=== PATIENT | male | born 1930 | race Caucasian/White ===

== ENCOUNTER 2016-09-07 22:28 | Inpatient (IN) | payer OTHER ==
--- NOTE | 2016-09-07 22:40 | CPEKG ---
Heart Rate: 77 RR Interval: 779 QRSD Interval: 140 QT Interval: 444 QTC Interval: 503 QRS Berkley: -46 T Wave Berkley: 30 EKG Severity - ABNORMAL ECG - EKG Impression: AFIB/FLUT AND V-PACED COMPLEXES EKG Impression: RBBB AND LAFB Electronically Signed By: Elgin Felix 07-Sep-2016 23:04:11
--- NOTE | 2016-09-07 22:42 | EDPHY ---
H & P HPI/ROS: HPI CHIEF COMPLAINT: Generalized weakness HISTORY OF PRESENT ILLNESS: this patient very pleasant 85-year-old male significant past medical history for coronary artery disease with stents, pacemaker, DVT, AFib, chronic kidney disease, hypertension, hyperlipidemia who presents emergency room by EMS from private residence with his for generalized weakness. Patient unable to give me very good history. History mainly comes from the . reports to me that he did well yesterday he went to cardiac rehab yesterday he was a little bit tired last night however today he has been unable to walk as he has been so fatigued and complaining of generalized weakness. He slept almost all of the day in his recliner. Was amiable to get out of his climber without help which is unusual for him. He does use a walker. He states that his legs feel very heavy and he cannot ambulate appropriately because he is so weak and tired. Denies having chest pain to me denies being shortness of breath, denies vomiting and diarrhea or abdominal pain. He does admit to dysuria. Denies back pain or flank pain or fever or headache. Past Medical History: Hypertension, hyperlipidemia, AFib, DVT, coronary artery disease, UTI, prostate CA, CKD Past Surgical History: Cholecystectomy Social History: Lives locally, at bedside, lives in independent house Family History: Noncontributory ROS REVIEW OF SYSTEMS: Review of systems extremely limited due to the patient's being a poor historian possible underlying clinical condition Exam Constitutional sleepy, triage nursing summary reviewed, vital signs reviewed, awake/alert. Eyes normal conjunctivae and sclera, EOMI, PERRLA. HENT normal inspection, atraumatic, dry mucous membranes, no epistaxis, neck supple/ no meningismus, no raccoon eyes. Respiratory clear to auscultation bilaterally, normal breath sounds, no respiratory distress, no wheezing. Cardiovascular pacemaker left chest, rate normal, regular rhythm, no murmur, no edema, distal pulses normal. Gastrointestinal soft, non-tender, no rebound, no guarding, normal bowel sounds, no distension, no pulsatile mass. Genitourinary no CVA tenderness. Musculoskeletal no midline vertebral tenderness, full range of motion, no calf swelling, no tenderness of extremities, no meningismus, good pulses, neurovascularly intact. Skin pink, warm, & dry, no rash, skin atraumatic. Neurologic sleepy awake, alert and oriented x 3, AAOx3, moves all 4 extremities equally, motor intact, sensory intact, CN II-XII intact, normal cerebellar, normal vision, bilateral lower extremity weakness 3+ out of 5. Upper extremity strong bilaterally, otherwise no other focal neuro deficit appreciated. Psychiatric normal mood/affect. Heme/Lymph/Immune no lymphadenopathy. Differential Diagnosis: Includes but is not limited to in a particular order, infection, electrolyte abnormality, dehydration, UTI, acute coronary syndrome Medical Decision Making: plan for this patient will have an IV established, blood work, check urinalysis EKG, troponin, chest x-ray and CT scan of head for altered mental status and generalized weakness. Re-evaluation: EKG interpretation by me on record in [facility] system. Impression time of EKG 2237: This shows a rate of 77, right bundle branch block left anterior fascicular block this EKG is very similar morphology from previous EKG dated on 05/12/2016 shows T-wave inversions V1, V2, V3 very similar to previous EKG. CT scan of the head without IV contrast. The results of the study are negative for anything acute specifically no bleed. The study was read by Dr. Stock I viewed the images myself on the PACS system. ED x-ray chest one view: negative for acute cardiopulmonary disease specifically do not appreciate focal pneumonia. Image interpreted by myself. 1221: Re-evaluation at this time updated at bedside patient is resting no acute distress. Due to the patient's profound weakness unable to ambulate take care of himself he will need to be admitted to the hospital for generalized weakness. It is noted he has an elevated troponin however when I trend this is close to his baseline as well as his BMP. He does not appear volume overloaded fact he appears clinically dehydrated on exam. He has no chest pain or shortness of breath his EKG is unchanged in morphology. Influenza is pending. Chest x-ray shows no pneumonia. CT scan of his head is unremarkable. Urinalysis does indicate he may have a urinary tract infection this may be contributing to his leukocytosis as well as generalized weakness. I have sent a urine culture and will treat with 1 g IV Rocephin. Due the patient's age, generalized weakness, urinary tract infection patient be admitted to the hospital for further evaluation and workup of generalized weakness. It is noted he is afebrile here and nontoxic. Patient agrees for admission so his at bedside. I spoke with the hospitalist service Dr. Guzman who agrees to admit. Source: Patient, EMS - Personal History Tetanus Vaccine Date: 2011 - Medical/Surgical History Hx Asthma: No Hx Chronic Respiratory Disease: Yes Hx Diabetes: No Hx Cardiac Disease: Yes Hx Renal Disease: Yes Hx Cirrhosis: No Hx Alcoholism: No Hx HIV/AIDS: No Hx Splenectomy or Spleen Trauma: Yes Other PMH: PMH- AFIB W/ RVR, DVT W/ IVC FILTER, KIDNEY STONES, CAD W/ 4 STENTS, SLEEP APNEA W/ HOME O2, SEPSIS, HTN, HLD, CAHUILLA, CKD, PROSTATE CA, ISCHEMIC CARDIOMYOPATHY, CHF W/ EF 45% W/ DIASTOLIC FXN. PSH- OCTAVIO, CARDIAC STENT X4, KIDNEY TUMOR RESECTED, CERVICAL SPINE FUSION, LUMBAR FUSION, TONSILECTOMY - Social History Smoking Status: Never smoked Constitutional: Initial Vital Signs Temperature (C) 36.7 C 09/07/16 22:39 Heart Rate 78 09/07/16 22:39 Respiratory Rate 18 09/07/16 22:39 Blood Pressure 164/78 H 09/07/16 22:39 O2 Sat (%) 92 09/07/16 22:39 O2 Delivery Mode Room Air O2 (L/minute) 2 Allergies/Adverse Reactions: No Allergies [NKA] Allergy (Verified 09/04/14 18:03) Home Medications: Medication Instructions Recorded Atorvastatin Calcium [Lipitor 80 80 mg PO DAILY@08/08/15 mg] Beta-Carotene(A) W-C & E/Min 1 tab PO DAILY@08/08/15 [Ocuvite] Bicalutamide [Casodex (*)] 50 mg PO DAILY@08/08/15 Cholecalciferol Vit D3 [Vitamin D3 2,000 units PO DAILY 08/08/15 (*)] Clotrimazole 1% 1 aaron TP BID 08/08/15 Ezetimibe [Zetia 10 MG (*)] 10 mg PO DAILY@08/08/15 Furosemide [Lasix 20 MG (*)] 20 mg PO DAILY@08/08/15 Metoprolol Tartrate [Lopressor 25 12.5 mg PO BID 08/08/15 mg (*)] [place]-3 Fatty Acids [Fish Oil 1000 1,000 mg PO DAILY@08 08/08/15 mg (*)] Tamsulosin HCl [Flomax 0.4 MG (*)] 0.4 mg PO DAILY@08 08/08/15 hydrOXYzine HCL [Hydroxyzine HCl] 25 mg PO DAILY@18 08/08/15 Levothyroxine [Synthroid 75 mcg 75 mcg PO DAILY06 08/09/15 (*)] Digoxin [Lanoxin 0.125 mg] 0.125 mg PO SUTUWETHSA #0 tab 08/12/15 Digoxin [Lanoxin 0.25 mg] 0.25 mg PO MOFR #0 tab 08/12/15 Edoxaban Tosylate [Savaysa] 30 mg PO DAILY #0 tablet 08/12/15 Desoximetasone 0.25% [Topicort 1 aaron TP BID 05/07/16 0.25% Cream (*)] Clopidogrel Bisulfate [Plavix (*)] 75 mg PO DAILY #30 tab 05/13/16 Nitroglycerin [Nitrostat 0.4 mg 0.4 mg SL PRN PRN #1 btl 05/13/16 (*)] Medical Decision Making - Data Points Laboratory Results: Laboratory Results 09/07/16 22:30 09/07/16 22:30 09/07/16 09/07/16 09/07/16 23:50 23:45 23:05 WBC RBC Hgb Hct MCV MCH MCHC RDW Plt Count MPV Neut % (Auto) Lymph % (Auto) Vance % (Auto) Eos % (Auto) Baso % (Auto) Nucleat RBC Rel Count Absolute Neuts (auto) Absolute Lymphs (auto) Absolute Monos (auto) Absolute Eos (auto) Absolute Basos (auto) Absolute Nucleated RBC Immature Gran % Immature Gran # PT 17.9 SEC H SEC (12.0-15.0) INR 1.48 H (0.83-1.16) APTT 43.4 SEC H SEC (23.0-38.0) Sodium Potassium Chloride Carbon Dioxide Anion Gap BUN Creatinine Estimated GFR Glucose Calcium Magnesium Total Bilirubin Conjugated Bilirubin Unconjugated Bilirubin AST ALT Alkaline Phosphatase Creatine Kinase CK-MB (CK-2) Fraction Troponin I NT-Pro-B Natriuret Pep Total Protein Albumin Lipase Urine Color YELLOW Urine Appearance HAZY Urine pH 5.0 (5.0-7.5) Ur Specific [place] 1.014 (1.002-1.030) Urine Protein 2+ H (NEGATIVE) Urine Ketones NEGATIVE (NEGATIVE) Urine Blood 3+ H (NEGATIVE) Urine Nitrate NEGATIVE (NEGATIVE) Urine Bilirubin NEGATIVE (NEGATIVE) Urine Urobilinogen NEGATIVE EU EU (0.2-1.0) Ur Leukocyte Esterase 1+ H (NEGATIVE) Urine RBC 50-182 /hpf H /hpf (0-3) Urine WBC 15-25 /hpf H /hpf (0-3) Ur Epithelial Cells TRACE /lpf /lpf (NONE-1+) Urine Bacteria TRACE /hpf H /hpf (NONE SEEN) Urine Mucus TRACE /lpf /lpf (NONE-1+) Ur Culture Indicated? INDICATED H (NI) Urine Glucose NEGATIVE (NEGATIVE) Digoxin Urine Opiates Screen NEGATIVE (NEGATIVE) Urine Barbiturates NEGATIVE (NEGATIVE) Ur Phencyclidine Scrn NEGATIVE (NEGATIVE) Ur Amphetamine Screen NEGATIVE (NEGATIVE) U Benzodiazepines Scrn NEGATIVE (NEGATIVE) Urine Cocaine Screen NEGATIVE (NEGATIVE) U Marijuana (THC) Screen NEGATIVE (NEGATIVE) Influenza Typ A,B (DFA) Pending 09/07/16 09/07/16 22:30 22:30 WBC 13.60 10^3/uL H 10^3/uL (3.80-9.50) RBC 5.06 10^6/uL 10^6/uL (4.40-6.38) Hgb 16.2 g/dL g/dL (13.7-17.5) Hct 48.0 % % (40.0-51.0) MCV 94.9 fL fL (81.5-99.8) MCH 32.0 pg pg (27.9-34.1) MCHC 33.8 g/dL g/dL (32.4-36.7) RDW 13.3 % % (11.5-15.2) Plt Count 157 10^3/uL 10^3/uL (150-400) MPV 11.9 fL H fL (8.7-11.7) Neut % (Auto) 79.3 % H % (39.3-74.2) Lymph % (Auto) 6.9 % L % (15.0-45.0) Vance % (Auto) 12.9 % % (4.5-13.0) Eos % (Auto) 0.1 % L % (0.6-7.6) Baso % (Auto) 0.2 % L % (0.3-1.7) Nucleat RBC Rel Count 0.0 % % (0.0-0.2) Absolute Neuts (auto) 10.78 10^3/uL H 10^3/uL (1.70-6.50) Absolute Lymphs (auto) 0.94 10^3/uL L 10^3/uL (1.00-3.00) Absolute Monos (auto) 1.75 10^3/uL H 10^3/uL (0.30-0.80) Absolute Eos (auto) 0.02 10^3/uL L 10^3/uL (0.03-0.40) Absolute Basos (auto) 0.03 10^3/uL 10^3/uL (0.02-0.10) Absolute Nucleated RBC 0.00 10^3/uL 10^3/uL (0-0.01) Immature Gran % 0.6 % % (0.0-1.1) Immature Gran # 0.08 10^3/uL 10^3/uL (0.00-0.10) PT INR APTT Sodium 137 mEq/L mEq/L (134-144) Potassium 4.3 mEq/L mEq/L (3.5-5.2) Chloride 101 mEq/L mEq/L (97-110) Carbon Dioxide 27 mEq/l mEq/l (22-31) Anion Gap 9 mEq/L mEq/L (8-16) BUN 33 mg/dL H mg/dL (7-23) Creatinine 2.0 mg/dL H mg/dL (0.7-1.3) Estimated GFR 32 Glucose 140 mg/dL H mg/dL (70-100) Calcium 10.0 mg/dL mg/dL (8.5-10.4) Magnesium 2.0 mg/dL mg/dL (1.6-2.3) Total Bilirubin 1.9 mg/dL H mg/dL (0.1-1.4) Conjugated Bilirubin 0.4 mg/dL mg/dL (0.0-0.5) Unconjugated Bilirubin 1.5 mg/dL H mg/dL (0.0-1.1) AST 28 IU/L IU/L (17-59) ALT 32 IU/L IU/L (21-72) Alkaline Phosphatase 91 IU/L IU/L (38-126) Creatine Kinase 132 IU/L IU/L (0-224) CK-MB (CK-2) Fraction 2.96 ng/mL ng/mL (0-3.19) Troponin I 0.057 ng/mL H ng/mL (0-0.034) NT-Pro-B Natriuret Pep 3880 pg/mL H pg/mL (0-450) Total Protein 7.7 g/dL g/dL (6.3-8.2) Albumin 4.2 g/dL g/dL (3.5-5.0) Lipase 85.0 IU/L IU/L (23-300) Urine Color Urine Appearance Urine pH Ur Specific [place] Urine Protein Urine Ketones Urine Blood Urine Nitrate Urine Bilirubin Urine Urobilinogen Ur Leukocyte Esterase Urine RBC Urine WBC Ur Epithelial Cells Urine Bacteria Urine Mucus Ur Culture Indicated? Urine Glucose Digoxin 1.0 ng/mL ng/mL (0.8-2.0) Urine Opiates Screen Urine Barbiturates Ur Phencyclidine Scrn Ur Amphetamine Screen U Benzodiazepines Scrn Urine Cocaine Screen U Marijuana (THC) Screen Influenza Typ A,B (DFA) Medications Given: Discontinued Medications Sodium Chloride (Ns) 500 mls @ 0 mls/hr IV ONCE ONE PRN Reason: As Directed Stop: 09/07/16 22:55 Last Admin: 09/07/16 23:05 Dose: 500 mls Departure - Departure Disposition: [facility] Inpatient Acute Clinical Impression: Generalized weakness UTI (urinary tract infection) Qualifiers: Urinary tract infection type: acute cystitis Hematuria presence: with hematuria Qualified Code(s): N30.01 - Acute cystitis with hematuria Condition: Fair Referrals: Rod Meza MD [Primary Care Provider] - As per Instructions
[2016-09-07] MEDS ORDERED: NS 500 ML IV ONE (22:54)
[2016-09-07 23:02] LABS: % IMMATURE GRANULYOCYTES 0.6 % (0.0-1.1); ABSOLUTE IMMATURE GRANULOCYTES 0.08 10^3/uL (0.00-0.10); ADD DIFF? NO; ADD MORPH? NO; ADD SCAN? NO; ATYPICAL LYMPHOCYTE FLAG 0 (0-99); FRAGMENT RBC FLAG 0 (0-99); HEMOGLOBIN 16.2 g/dL (13.7-17.5); LEFT SHIFT FLG 10 (0-99); LIPEMIA HEMOLYSIS FLAG 90 (0-99); MEAN CELL HEMOGLOBIN CONCENTR. 33.8 g/dL (32.4-36.7); MEAN CELL VOLUME 94.9 fL (81.5-99.8); MEAN PLATELET VOLUME 11.9 fL (8.7-11.7); PLATELET CLUMPS FLAG 0 (0-99); PLATELET COUNT 157 10^3/uL (150-400); RED BLOOD CELL COUNT 5.06 10^6/uL (4.40-6.38); RED CELL DISTRIBUTION WIDTH 13.3 % (11.5-15.2)
[2016-09-07 23:10] LABS: ALANINE AMINOTRANSFERASE 32 IU/L (21-72); ALBUMIN 4.2 g/dL (3.5-5.0); ALKALINE PHOSPHATASE 91 IU/L (38-126); ANION GAP 9 mEq/L (8-16); ASPARTATE AMINOTRANSFERASE 28 IU/L (17-59); BILIRUBIN,TOTAL 1.9 mg/dL (0.1-1.4); BILIRUBIN-CONJUGATED 0.4 mg/dL (0.0-0.5); BILIRUBIN-UNCONJUGATED 1.5 mg/dL (0.0-1.1); CARBON DIOXIDE 27 mEq/l (22-31); CHLORIDE 101 mEq/L (97-110); GLOMERULAR FILTRATION RATE 32; GLUCOSE 140 mg/dL (70-100); POTASSIUM 4.3 mEq/L (3.5-5.2); SODIUM 137 mEq/L (134-144); TOTAL PROTEIN 7.7 g/dL (6.3-8.2)
[2016-09-07 23:19] LABS: CREATINE KINASE-MB FRACTION 2.96 ng/mL (0-3.19); TROPONIN I 0.057 ng/mL (0-0.034)
[2016-09-07 23:22] LABS: INR 1.48 (0.83-1.16); PROTIME(PATIENT) 17.9 SEC (12.0-15.0)
[2016-09-07 23:23] LABS: APTT 43.4 SEC (23.0-38.0)
[2016-09-08 00:09] LABS: COLOR YELLOW; LEUKOCYTE ESTERASE,URINE 1+ (NEGATIVE); NITRITE,URINE NEGATIVE (NEGATIVE)
[2016-09-08 00:13] LABS: BACTERIA TRACE /hpf (NONE SEEN); MUCUS TRACE /lpf (NONE-1+); RBC,URINE 50-182 /hpf (0-3); WBC,URINE 15-25 /hpf (0-3)
[2016-09-08] MEDS ORDERED: ONDANSETRON 4 MG/2 ML VIAL IVP PRN (01:07)
[2016-09-08] MEDS ORDERED: ACETAMINOPHEN 325 MG TAB PO PRN (01:07)
[2016-09-08] MEDS ORDERED: oxyCODONE IR 5 MG TAB PO PRN (01:07)
[2016-09-08] MEDS ORDERED: ONDANSETRON DISINTEGRATING 4 MG TAB PO PRN (01:07)
[2016-09-08] MEDS ORDERED: ALBUTEROL 3 ML DEYVIAL IH PRN (01:07)
--- NOTE | 2016-09-08 01:49 | PDGENHP ---
History and Physical - Chief Complaint generalized weakness - History of Present Illness 85 yo M with MMI including CAD s/p recent stent placement in May, as well as a fib w/rvr/sss s/p PPM, metastatic prostate cancer and cognitive decline presumed dementia being followed by neurology presenting with generalized weakness and now inability to ambulate. Patient is a poor historian, but he reports that this has been getting worse over the last week, to the point where now he cannot stand or walk on his own. He previously was walking with a cane and has been living independently with his . She reported to the ER that he spent the last 24 hours in his recliner, mostly sleeping, and was unable to get up when she tried to help him get out of the chair. He has no specific complaints, and denies pain including chest pain, pain with urination, difficulty breathing or fever or chills. His last hospital stay in May was prolonged in part due to deconditioning and concerns that he would not be safe at home, but at that time, it was he and his 's preference to return home. History Information - Allergies/Home Medication List Allergies/Adverse Reactions: No Allergies [NKA] Allergy (Verified 09/04/14 18:03) Home Medications: Atorvastatin Calcium [Lipitor 80 mg] 80 mg PO DAILY@08/08/15 [Last Taken 09/16] Beta-Carotene(A) W-C & E/Min [Ocuvite] 1 tab PO DAILY@08/08/15 [Last Taken ] Bicalutamide [Casodex (*)] 50 mg PO DAILY@08/08/15 [Last Taken 05/06/16] Cholecalciferol Vit D3 [Vitamin D3 (*)] 2,000 units PO DAILY 08/08/15 [Last Taken 05/07/16] Ezetimibe [Zetia 10 MG (*)] 10 mg PO DAILY@08/08/15 [Last Taken 05/06/16] Furosemide [Lasix 20 MG (*)] 20 mg PO DAILY@08/08/15 [Last Taken 05/06/16] Metoprolol Tartrate [Lopressor 25 mg (*)] 12.5 mg PO BID 08/08/15 [Last Taken 08:00] [place]-3 Fatty Acids [Fish Oil 1000 mg (*)] 1,000 mg PO DAILY@08/08/15 [Last Taken 05/07/16] Tamsulosin HCl [Flomax 0.4 MG (*)] 0.4 mg PO DAILY@08/08/15 [Last Taken 05/07 08:00] hydrOXYzine HCL [Hydroxyzine HCl] 25 mg PO DAILY@08/08/15 [Last Taken ] Levothyroxine [Synthroid 75 mcg (*)] 75 mcg PO DAILY06 08/09/15 [Last Taken 10/17 06:00] Donepezil HCl 09/08/16 [Last Taken Unknown] I have personally reviewed and updated: family history, medical history, social history, surgical history - Past Medical History atrial fibrillation (permanent, s/p PPM), coronary artery disease (s/p multiple stents--most recently in May), cancer (metastatic prostate cancer, RCC), CHF (ischemic CM with EF of 75% most recently (prior as low as 40%), DD), dementia, DVT, GI bleed, hearing deficit, hypertension, hyperlipidemia, pulmonary embolism Additional medical history: CKD--baseline creatinine 1.7-2. KATHERINE--nocturnal oxygen. spinal stenosis. hypothyroid - Surgical History Reports: cancer surgery (prostatectomy, nephrectomy), cholecystectomy, pacemaker /AICD, spinal surgery (laminectomy, cervical fusion), coronary stent Additional surgical history: knee surgery. hip surgery. tonsillectomy - Family History Positive for: cancer (mother of liver cancer), stroke (father with strokes , unknown age) - Social History Smoking Status: Never smoked Alcohol Use: Occasionally (approximately 5x/week) Drug Use: None Additional social history: , lives independently, retired professor Review of Systems ROS: 10pt was reviewed & negative except for what was stated in HPI & below Physical Exam Temp Pulse Resp BP Pulse Ox 36.8 C 69 18 143/65 H 94 09/08/16 01:35 09/08/16 01:35 09/08/16 01:35 09/08/16 01:35 09/08/16 01:35 O2 (L/minute) 3 Constitutional: no apparent distress, appears nourished, not in pain Eyes: PERRL Ears, Nose, Mouth, Throat: moist mucous membranes, no oral mucosal ulcers, hard of hearing Cardiovascular: regular rate and rhythym, no murmur, rub, or gallop, edema Respiratory: no respiratory distress, no rales or rhonchi, reduced air movement Gastrointestinal: normoactive bowel sounds, soft, non-tender abdomen Genitourinary: no bladder tenderness Skin: warm, normal color Musculoskeletal: generalized weakness, No asymmetric calves, No muscular tenderness Neurologic: weakness (diffuse bilateral weakness), CN II-XII Intact, No AAOx3 Psychiatric: interacting appropriately, not anxious, poor memory, other ( intermittently speaking in Nepali) Lab Data & Imaging Review 09/07/16 22:30 09/07/16 22:30 WBC 13.60 10^3/uL (3.80-9.50) H 09/07/16 22:30 RBC 5.06 10^6/uL (4.40-6.38) 09/07/16 22:30 Hgb 16.2 g/dL (13.7-17.5) 09/07/16 22:30 Hct 48.0 % (40.0-51.0) 09/07/16 22:30 MCV 94.9 fL (81.5-99.8) 09/07/16 22:30 MCH 32.0 pg (27.9-34.1) 09/07/16 22:30 MCHC 33.8 g/dL (32.4-36.7) 09/07/16 22:30 RDW 13.3 % (11.5-15.2) 09/07/16 22:30 Plt Count 157 10^3/uL (150-400) 09/07/16 22:30 MPV 11.9 fL (8.7-11.7) H 09/07/16 22:30 Neut % (Auto) 79.3 % (39.3-74.2) H 09/07/16 22:30 Lymph % (Auto) 6.9 % (15.0-45.0) L 09/07/16 22:30 [place] % (Auto) 12.9 % (4.5-13.0) 09/07/16 22:30 Eos % (Auto) 0.1 % (0.6-7.6) L 09/07/16 22:30 Baso % (Auto) 0.2 % (0.3-1.7) L 09/07/16 22:30 Nucleat RBC Rel Count 0.0 % (0.0-0.2) 09/07/16 22:30 Absolute Neuts (auto) 10.78 10^3/uL (1.70-6.50) H 09/07/16 22:30 Absolute Lymphs (auto) 0.94 10^3/uL (1.00-3.00) L 09/07/16 22:30 Absolute Monos (auto) 1.75 10^3/uL (0.30-0.80) H 09/07/16 22:30 Absolute Eos (auto) 0.02 10^3/uL (0.03-0.40) L 09/07/16 22:30 Absolute Basos (auto) 0.03 10^3/uL (0.02-0.10) 09/07/16 22:30 Absolute Nucleated RBC 0.00 10^3/uL (0-0.01) 09/07/16 22:30 Immature Gran % 0.6 % (0.0-1.1) 09/07/16 22:30 Immature Gran # 0.08 10^3/uL (0.00-0.10) 09/07/16 22:30 PT 17.9 SEC (12.0-15.0) H 09/07/16 23:05 INR 1.48 (0.83-1.16) H 09/07/16 23:05 APTT 43.4 SEC (23.0-38.0) H 09/07/16 23:05 Sodium 137 mEq/L (134-144) 09/07/16 22:30 Potassium 4.3 mEq/L (3.5-5.2) 09/07/16 22:30 Chloride 101 mEq/L (97-110) 09/07/16 22:30 Carbon Dioxide 27 mEq/l (22-31) 09/07/16 22:30 Anion Gap 9 mEq/L (8-16) 09/07/16 22:30 BUN 33 mg/dL (7-23) H 09/07/16 22:30 Creatinine 2.0 mg/dL (0.7-1.3) H 09/07/16 22:30 Estimated GFR 32 09/07/16 22:30 Glucose 140 mg/dL (70-100) H 09/07/16 22:30 Calcium 10.0 mg/dL (8.5-10.4) 09/07/16 22:30 Magnesium 2.0 mg/dL (1.6-2.3) 09/07/16 22:30 Total Bilirubin 1.9 mg/dL (0.1-1.4) H 09/07/16 22:30 Conjugated Bilirubin 0.4 mg/dL (0.0-0.5) 09/07/16 22:30 Unconjugated Bilirubin 1.5 mg/dL (0.0-1.1) H 09/07/16 22:30 AST 28 IU/L (17-59) 09/07/16 22:30 ALT 32 IU/L (21-72) 09/07/16 22:30 Alkaline Phosphatase 91 IU/L (38-126) 09/07/16 22:30 Creatine Kinase 132 IU/L (0-224) 09/07/16 22:30 CK-MB (CK-2) Fraction 2.96 ng/mL (0-3.19) 09/07/16 22:30 Troponin I 0.057 ng/mL (0-0.034) H 09/07/16 22:30 NT-Pro-B Natriuret Pep 3880 pg/mL (0-450) H 09/07/16 22:30 Total Protein 7.7 g/dL (6.3-8.2) 09/07/16 22:30 Albumin 4.2 g/dL (3.5-5.0) 09/07/16 22:30 Lipase 85.0 IU/L (23-300) 09/07/16 22:30 Urine Color YELLOW 09/07/16 23:50 Urine Appearance HAZY 09/07/16 23:50 Urine pH 5.0 (5.0-7.5) 09/07/16 23:50 Ur Specific [place] 1.014 (1.002-1.030) 09/07/16 23:50 Urine Protein 2+ (NEGATIVE) H 09/07/16 23:50 Urine Ketones NEGATIVE (NEGATIVE) 09/07/16 23:50 Urine Blood 3+ (NEGATIVE) H 09/07/16 23:50 Urine Nitrate NEGATIVE (NEGATIVE) 09/07/16 23:50 Urine Bilirubin NEGATIVE (NEGATIVE) 09/07/16 23:50 Urine Urobilinogen NEGATIVE EU (0.2-1.0) 09/07/16 23:50 Ur Leukocyte Esterase 1+ (NEGATIVE) H 09/07/16 23:50 Urine RBC 50-182 /hpf (0-3) H 09/07/16 23:50 Urine WBC 15-25 /hpf (0-3) H 09/07/16 23:50 Ur Epithelial Cells TRACE /lpf (NONE-1+) 09/07/16 23:50 Urine Bacteria TRACE /hpf (NONE SEEN) H 09/07/16 23:50 Urine Mucus TRACE /lpf (NONE-1+) 09/07/16 23:50 Ur Culture Indicated? INDICATED (NI) H 09/07/16 23:50 Urine Glucose NEGATIVE (NEGATIVE) 09/07/16 23:50 Digoxin 1.0 ng/mL (0.8-2.0) 09/07/16 22:30 Urine Opiates Screen NEGATIVE (NEGATIVE) 09/07/16 23:50 Urine Barbiturates NEGATIVE (NEGATIVE) 09/07/16 23:50 Ur Phencyclidine Scrn NEGATIVE (NEGATIVE) 09/07/16 23:50 Ur Amphetamine Screen NEGATIVE (NEGATIVE) 09/07/16 23:50 U Benzodiazepines Scrn NEGATIVE (NEGATIVE) 09/07/16 23:50 Urine Cocaine Screen NEGATIVE (NEGATIVE) 09/07/16 23:50 U Marijuana (THC) Screen NEGATIVE (NEGATIVE) 09/07/16 23:50 Influenza Typ A,B (DFA) NEGATIVE FOR FLU (NEGATIVE) 09/07/16 23:45 Visualized and Interpreted Chest x-ray results: Yes Chest X-Ray results: no infiltrate, other (PPM in place) Visualized and Interpreted imaging results: Yes Interpretation: Head CT without any acute findings Visualized and Interpreted EKG results: Yes EKG Interpretation: Positive for: other (LAFB), right bundle branch block, T waves inversion EKG additional interpertation: AV paced, No change from prior Assessment & Plan Assessment: 85 yo M with MMI including CAD, a fib, dementia pw generalized weakness/acute on chronic decline with likely FTT # generalized weakness: sounds like more of an acute on chronic picture in the setting of multiple comorbidities and underlying dementia. Possible UTI contributing as per next, but otherwise concern that this may be more due to progression of his underlying dementia and adult onset FTT. PT/OT/CM to be involved. Will very likely need SNF after dc. # pyuria: UA showing 15-25 wbc, 1+ leuk esterase and trace bacteria as well as 50-180 RBC which while not clearly infection, given above, will treat for now as UTI pending culture data. Started on ctx in ER and will continue for now. # elevated trop: in setting of CAD and recent stent placement. Reviewing old labs, trop seems to be always elevated to this range however and doubt that this represents ACS. Will trend trops, monitor on tele. If trending up will consult [facility] for further evaluation. # chronic CHF: with EF of 75% most recently, has some mild LE edema but otherwise no e/o decompensation. Continue op meds # ckd: appears to be largely at baseline, though may have a mild component of rafael as well. Will monitor. Has received IVF in ER and will hold off on further given underlying cardiac issues. # permanent a fib: now s/p ppm and rate controlled on metop/digoxin. Dig level within normal range. Is on AC at home with Edoxaban, [place] [facility] [place] as this is not available here. # hx of metastatic prostate cancer/hx of RCC: continued on casodex # hx of PE/DVT: has IVC filter, AC is as above--will resume edoxaban when able, [facility] [place] # dementia: complicating all of above, this does seem to have been a subacute decline in his cognition and he is being followed by Dr. Geronimo of neuro # dispo: IP status, will need > 48 hours stay for eval/mgmt of above given his inability to walk/stand making him unsafe to live independently at this time Code status: has living will that stipulates FC, is MDPOA Patient new to my care. Old records reviewed and summarized as per HPI. Care plan including tx of suspected UTI reviewed with Dr. Leslie.
[2016-09-08 05:11] LABS: % IMMATURE GRANULYOCYTES 0.4 % (0.0-1.1); ABSOLUTE IMMATURE GRANULOCYTES 0.06 10^3/uL (0.00-0.10); ADD DIFF? NO; ADD MORPH? NO; ADD SCAN? NO; ATYPICAL LYMPHOCYTE FLAG 0 (0-99); FRAGMENT RBC FLAG 0 (0-99); HEMATOCRIT 44.7 % (40.0-51.0); HEMOGLOBIN 15.1 g/dL (13.7-17.5); LEFT SHIFT FLG 10 (0-99); LIPEMIA HEMOLYSIS FLAG 90 (0-99); MEAN CELL HEMOGLOBIN 31.9 pg (27.9-34.1); MEAN CELL HEMOGLOBIN CONCENTR. 33.8 g/dL (32.4-36.7); MEAN CELL VOLUME 94.5 fL (81.5-99.8); MEAN PLATELET VOLUME 11.7 fL (8.7-11.7); PLATELET CLUMPS FLAG 0 (0-99); PLATELET COUNT 144 10^3/uL (150-400); RED BLOOD CELL COUNT 4.73 10^6/uL (4.40-6.38); RED CELL DISTRIBUTION WIDTH 13.2 % (11.5-15.2)
[2016-09-08] MEDS: HEPARIN 5,000 UNIT/0.5 ML SYR SC SCH ×3 (05:31→22:54)
[2016-09-08] MEDS: LEVOTHYROXINE 75 MCG TAB PO SCH (05:31)
[2016-09-08 05:36] LABS: ALANINE AMINOTRANSFERASE 30 IU/L (21-72); ALBUMIN 3.6 g/dL (3.5-5.0); ALKALINE PHOSPHATASE 81 IU/L (38-126); ANION GAP 12 mEq/L (8-16); ASPARTATE AMINOTRANSFERASE 22 IU/L (17-59); BILIRUBIN,TOTAL 1.8 mg/dL (0.1-1.4); CALCIUM 9.4 mg/dL (8.5-10.4); CARBON DIOXIDE 25 mEq/l (22-31); CHLORIDE 105 mEq/L (97-110); CREATININE 1.9 mg/dL (0.7-1.3); GLOMERULAR FILTRATION RATE 34; GLUCOSE 122 mg/dL (70-100); POTASSIUM 3.9 mEq/L (3.5-5.2); SODIUM 142 mEq/L (134-144); TOTAL PROTEIN 6.6 g/dL (6.3-8.2)
[2016-09-08 05:48] LABS: TROPONIN I 0.082 ng/mL (0-0.034)
--- NOTE | 2016-09-08 09:50 | HOSPPROG ---
Hospitalist Progress Note Assessment/Plan: 85 yo M with MMI including CAD, a fib, dementia pw generalized weakness/acute on chronic decline with likely FTT # generalized weakness: sounds like more of an acute on chronic picture in the setting of multiple comorbidities and underlying dementia. Possible UTI contributing as per next, but otherwise concern that this may be more due to progression of his underlying dementia and adult onset FTT. PT/OT/CM to be involved. Will very likely need SNF after dc. # pyuria: UA showing 15-25 wbc, 1+ leuk esterase and trace bacteria as well as 50-180 RBC which while not clearly infection, given above, will treat for now as UTI pending culture data. Currently on CTX. # elevated trop: in setting of CAD and recent stent placement. No CP or SOB. EKG (personally reviewed) with no acute Ischemic changes. Per old labs, trop seems to be always elevated to this range however and doubt that this represents ACS. Will trend trops, monitor on tele. If continue to trend up or symptomatic, consider consulting Cards. # chronic CHF: with EF of 75% most recently, has some mild LE edema but otherwise no e/o decompensation. Continue op meds. Holding low dose Lasix today as was a little dry on admission. # ckd: appears to be largely at baseline, though may have a mild component of rafael as well. Will monitor. Hold off on further IVF for now. Holding Lasix today # permanent a fib: now s/p ppm and rate controlled on metop/digoxin. Dig level within normal range. Is on AC at home with Edoxaban, renally dosed. He has been started on prophylactic SHANEL here. I believe that he may be a fall risk. Will wait for formal PT eval before determining future AC. May consider stopping it and starting aspirin instead. 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 See discussion on AC per above. # dementia: complicating all of above, this does seem to have been a subacute decline in his cognition and he is being followed by Dr. Geronimo of neuro # dispo: IP status, will need > 48 hours stay for eval/mgmt of above given his inability to walk/stand making him unsafe to live independently at this time Code status: has living will that stipulates FC, is MDPOA The patient is new to my care S: Confused. Knows that he is in a hospital, but think its in [place]. Does not know why he is here. Feels weak Denies CP, SOB, N/V. Objective: Vital Signs Temp Pulse Resp BP Pulse Ox 36.7 C 73 20 151/79 H 91 L 09/08/16 07:40 09/08/16 07:40 09/08/16 07:40 09/08/16 07:40 09/08/16 07:40 Laboratory Results 09/08/16 04:17 09/08/16 03:52 09/07/16 09/08/16 09/09/16 05:59 05:59 05:59 Intake Total 750 Output Total 120 Balance 630 PT 17.9 SEC (12.0-15.0) H 09/07/16 23:05 INR 1.48 (0.83-1.16) H 09/07/16 23:05 - Physical Exam Constitutional: no apparent distress, appears nourished, not in pain Eyes: PERRL, anicteric sclera, EOMI Ears, Nose, Mouth, Throat: moist mucous membranes, ears appear normal, No hearing normal, No no oral mucosal ulcers Cardiovascular: irregularly irregular, No JVD Respiratory: no respiratory distress, no rales or rhonchi, clear to auscultation Gastrointestinal: normoactive bowel sounds, soft, non-tender abdomen, no palpable masses Genitourinary: no bladder fullness, no bladder tenderness, no renal bruits Skin: warm, normal color Musculoskeletal: generalized weakness Neurologic: weakness, No AAOx3 Psychiatric: poor insight, poor judgement, poor memory Lymph, Heme, Immunologic: no cervical LAD ICD10 Worksheet Patient Problems: Problems Problem Status Onset Generalized weakness Acute UTI (urinary tract infection) Acute Atrial fibrillation Acute Bronchitis Acute Congestive heart failure Acute DVT (deep venous thrombosis) Acute Urinary tract infection Acute Weakness Acute
[2016-09-08] MEDS: METOPROLOL TARTRATE 25 MG TAB PO SCH ×2 (10:23→22:54)
[2016-09-08] MEDS: TAMSULOSIN HCL 0.4 MG CAP PO SCH (10:23)
[2016-09-08] MEDS: DIGOXIN 125 MCG TAB PO SCH (10:26)
[2016-09-09 05:48] LABS: % IMMATURE GRANULYOCYTES 0.6 % (0.0-1.1); ABSOLUTE IMMATURE GRANULOCYTES 0.08 10^3/uL (0.00-0.10); ADD DIFF? NO; ADD MORPH? NO; ADD SCAN? NO; ATYPICAL LYMPHOCYTE FLAG 0 (0-99); FRAGMENT RBC FLAG 0 (0-99); HEMATOCRIT 41.4 % (40.0-51.0); LEFT SHIFT FLG 10 (0-99); LIPEMIA HEMOLYSIS FLAG 90 (0-99); MEAN CELL HEMOGLOBIN 31.8 pg (27.9-34.1); MEAN CELL HEMOGLOBIN CONCENTR. 33.8 g/dL (32.4-36.7); MEAN CELL VOLUME 94.1 fL (81.5-99.8); MEAN PLATELET VOLUME 11.7 fL (8.7-11.7); PLATELET CLUMPS FLAG 20 (0-99); PLATELET COUNT 135 10^3/uL (150-400); RED CELL DISTRIBUTION WIDTH 13.5 % (11.5-15.2)
[2016-09-09] MEDS: LEVOTHYROXINE 75 MCG TAB PO SCH (06:04)
[2016-09-09 06:05] LABS: ANION GAP 10 mEq/L (8-16); CALCIUM 9.1 mg/dL (8.5-10.4); CARBON DIOXIDE 23 mEq/l (22-31); CHLORIDE 106 mEq/L (97-110); CREATININE 2.1 mg/dL (0.7-1.3); GLOMERULAR FILTRATION RATE 30; GLUCOSE 138 mg/dL (70-100); POTASSIUM 3.9 mEq/L (3.5-5.2); SODIUM 139 mEq/L (134-144)
[2016-09-09] MEDS: HEPARIN 5,000 UNIT/0.5 ML SYR SC SCH ×3 (06:06→21:28)
[2016-09-09] MEDS: DIGOXIN 125 MCG TAB PO SCH ×2 (08:38→13:38)
[2016-09-09] MEDS: TAMSULOSIN HCL 0.4 MG CAP PO SCH (08:39)
[2016-09-09] MEDS: METOPROLOL TARTRATE 25 MG TAB PO SCH ×2 (08:39→21:29)
[2016-09-09] MEDS ORDERED: NITROGLYCERIN 0.4 MG BTL SL PRN (13:02)
--- NOTE | 2016-09-09 15:32 | HOSPPROG ---
Hospitalist Progress Note Assessment/Plan: Hospitalist Progress Note Assessment/Plan: 85 yo M with MMI including CAD, a fib, dementia pw generalized weakness/acute on chronic decline with likely FTT. It is my 1st encounter with the patient, chart reviewed. Patient discussed with Dr. Atkins admitting provider. # generalized weakness: sounds like more of an acute on chronic picture in the setting of multiple comorbidities and underlying dementia. Possible UTI contributing as per next, but otherwise concern that this may be more due to progression of his underlying dementia and adult onset FTT. PT/OT/CM to be involved. Will very likely need SNF after dc. # pyuria: UA showing 15-25 wbc, 1+ leuk esterase and trace bacteria as well as 50-180 RBC which while not clearly infection, given above, will treat for now as UTI pending culture data. Currently on CTX. # elevated trop: in setting of CAD and recent stent placement. No CP or SOB. EKG with no acute Ischemic changes. Per old labs, trop seems to be always elevated to this range however and doubt that this represents ACS. Will trend trops, monitor on tele. If continue to trend up or symptomatic, consider consulting Cards. # chronic diastolic CHF: with EF of 75% most recently, has some mild LE edema but otherwise no e/o decompensation. Continue op meds. Holding low dose Lasix today as was a little dry on admission. # ckd: appears to be largely at baseline, though may have a mild component of rafael as well. Will monitor. Hold off on further IVF for now. Holding Lasix today # permanent a fib: now s/p ppm and rate controlled on metop/digoxin. Dig level within normal range. Is on AC at home with Edoxaban, renally dosed. He has been started on prophylactic SHANEL here. I believe that he may be a fall risk. Will wait for formal PT eval before determining future AC. May consider stopping it and starting aspirin instead. 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 See discussion on AC per above. # dementia: complicating all of above, this does seem to have been a subacute decline in his cognition and he is being followed by Dr. Geronimo of neuro # dispo: IP status, will need > 48 hours stay for eval/mgmt of above given his inability to walk/stand making him unsafe to live independently at this time Code status: has living will that stipulates FC, is MDPOA Subjective: Asleep, arousable. Confused. Denies any specific issues. Objective: Vital Signs Temp Pulse Resp BP Pulse Ox 36.2 C 73 22 H 114/57 L 92 09/09/16 12:00 09/09/16 12:00 09/09/16 12:00 09/09/16 12:00 09/09/16 12:00 Laboratory Results 09/09/16 05:25 09/09/16 05:25 09/08/16 09/09/16 09/10/16 05:59 05:59 05:59 Intake Total 750 890 55 Output Total 120 400 200 Balance 630 490 -145 PT 17.9 SEC (12.0-15.0) H 09/07/16 23:05 INR 1.48 (0.83-1.16) H 09/07/16 23:05 - Physical Exam Constitutional: no apparent distress, appears nourished, not in pain Eyes: PERRL, anicteric sclera, EOMI Ears, Nose, Mouth, Throat: moist mucous membranes, hard of hearing, No oral thrush Cardiovascular: regular rate and rhythym, No JVD, No tachycardia Respiratory: no respiratory distress, no rales or rhonchi, reduced air movement Gastrointestinal: No tenderness, No ascites, No guarding Skin: warm, normal color, No erythema Musculoskeletal: no joint effusions, abnormal gait, generalized weakness Neurologic: No AAOx3 Psychiatric: not anxious, poor insight, poor judgement, poor memory, No thought process linear ICD10 Worksheet Patient Problems: Problems Problem Status Onset Bronchitis Acute Atrial fibrillation Acute DVT (deep venous thrombosis) Acute Urinary tract infection Acute Congestive heart failure Acute Weakness Acute Generalized weakness Acute UTI (urinary tract infection) Acute
[2016-09-09] MEDS ORDERED: NON-FORMULARY NEW DRUG (Atorvastatin Calcium [Lipitor 80 Mg] 80 MG) PO SCH (18:00)
[2016-09-09] MEDS: hydrOXYzine HCL 25 MG TAB PO SCH (18:18)
[2016-09-09] MEDS: BICALUTAMIDE 50 MG TAB PO SCH (18:18)
[2016-09-09] MEDS: EZETIMIBE 10 MG TAB PO SCH (18:18)
[2016-09-09] MEDS: ATORVASTATIN CALCIUM 40 MG TAB PO SCH (18:18)
[2016-09-09] MEDS: DONEPEZIL HCL 5 MG TAB PO SCH (21:28)
[2016-09-10] MEDS: HEPARIN 5,000 UNIT/0.5 ML SYR SC SCH (04:55)
[2016-09-10] MEDS: LEVOTHYROXINE 75 MCG TAB PO SCH (04:55)
[2016-09-10] MEDS: METOPROLOL TARTRATE 25 MG TAB PO SCH ×2 (08:49→19:58)
[2016-09-10] MEDS: PRESERVISION AREDS2 FORMULA EYE VIT 1 EACH PO SCH (08:49)
[2016-09-10] MEDS: CHOLECALCIFEROL VIT D3 1,000 UNITS TAB PO SCH (08:49)
[2016-09-10] MEDS: OMEGA-3 FATTY ACIDS 1,000 MG CAP PO SCH (08:49)
[2016-09-10] MEDS: CLOPIDOGREL BISULFATE 75 MG TAB PO SCH (08:49)
[2016-09-10] MEDS: TAMSULOSIN HCL 0.4 MG CAP PO SCH (08:50)
[2016-09-10] MEDS: FUROSEMIDE 20 MG TAB PO SCH (09:46)
[2016-09-10] MEDS: EDOXABAN TOSYLATE 30 MG PO SCH (10:15)
[2016-09-10] MEDS ORDERED: DIGOXIN 250 MCG TAB PO SCH (13:02)
--- NOTE | 2016-09-10 14:45 | HOSPPROG ---
Hospitalist Progress Note Assessment/Plan: Hospitalist Progress Note Assessment/Plan: 85 yo M with MMI including CAD, a fib, dementia pw generalized weakness/acute on chronic decline with likely FTT. # generalized weakness: sounds like more of an acute on chronic picture in the setting of multiple comorbidities and underlying dementia. Possible UTI contributing progression of his underlying dementia and adult onset FTT. PT/OT/CM to be involved Will very likely need SNF after dc. # pyuria: UA showing 15-25 wbc, 1+ leuk esterase and trace bacteria as well as 50-180 RBC which while not clearly infection, given above Cx negative Stop CTX. # elevated trop: in setting of CAD and recent stent placement. No CP or SOB. EKG with no acute Ischemic changes. Per old labs, trop seems to be always elevated to this range however and doubt that this represents ACS. # chronic diastolic CHF: with EF of 75% most recently, Continue op meds. Restart Lasix today #Leukocytosis: unclear etiol recheck labs in am possibly viral or dehydration # ckd: appears to be largely at baseline, though may have a mild component of rafael as well. Hold off on further IVF for now # permanent a fib: now s/p ppm and rate controlled on metop/digoxin. Dig level within normal range. Is on AC at home with Edoxaban, renally dosed. He has been started on prophylactic SHANEL here. 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 See discussion on AC per above. # dementia: complicating all of above, this does seem to have been a subacute decline in his cognition and he is being followed by Dr. Geronimo of neuro # dispo: IP status, will need > 48 hours stay for eval/mgmt of above given his inability to walk/stand making him unsafe to live independently at this time Code status: has living will that stipulates FC, is MDPOA Subjective: Feeling ok. No specific issues. Still confused. Objective: Vital Signs Temp Pulse Resp BP Pulse Ox 36.4 C 69 18 116/63 94 09/10/16 11:47 09/10/16 11:47 09/10/16 11:47 09/10/16 11:47 09/10/16 11:47 Laboratory Results 09/09/16 05:25 09/09/16 05:25 09/09/16 09/10/16 09/11/16 05:59 05:59 05:59 Intake Total 890 515 300 Output Total 400 350 Balance 490 165 300 PT 17.9 SEC (12.0-15.0) H 09/07/16 23:05 INR 1.48 (0.83-1.16) H 09/07/16 23:05 - Physical Exam Constitutional: no apparent distress, appears nourished Eyes: PERRL, EOMI Ears, Nose, Mouth, Throat: moist mucous membranes, hearing normal Cardiovascular: No JVD, No tachycardia Respiratory: no respiratory distress, reduced air movement Gastrointestinal: No tenderness, No ascites Skin: warm, normal color Musculoskeletal: no joint effusions, generalized weakness Neurologic: No AAOx3 Psychiatric: not anxious, not encephalopathic, poor insight, poor judgement, poor memory ICD10 Worksheet Patient Problems: Problems Problem Status Onset Bronchitis Acute Atrial fibrillation Acute DVT (deep venous thrombosis) Acute Urinary tract infection Acute Congestive heart failure Acute Weakness Acute Generalized weakness Acute UTI (urinary tract infection) Acute
[2016-09-10] MEDS: hydrOXYzine HCL 25 MG TAB PO SCH (18:11)
[2016-09-10] MEDS: EZETIMIBE 10 MG TAB PO SCH (18:11)
[2016-09-10] MEDS: ATORVASTATIN CALCIUM 40 MG TAB PO SCH (18:11)
[2016-09-10] MEDS: BICALUTAMIDE 50 MG TAB PO SCH (18:11)
[2016-09-10] MEDS: DONEPEZIL HCL 5 MG TAB PO SCH (19:58)
[2016-09-11 05:36] LABS: HEMATOCRIT 37.7 % (40.0-51.0); HEMOGLOBIN 12.7 g/dL (13.7-17.5); MEAN CELL HEMOGLOBIN 31.8 pg (27.9-34.1); MEAN CELL HEMOGLOBIN CONCENTR. 33.7 g/dL (32.4-36.7); MEAN CELL VOLUME 94.3 fL (81.5-99.8); RED CELL DISTRIBUTION WIDTH 13.2 % (11.5-15.2)
[2016-09-11 05:57] LABS: ANION GAP 10 mEq/L (8-16); CALCIUM 8.6 mg/dL (8.5-10.4); CARBON DIOXIDE 24 mEq/l (22-31); CHLORIDE 106 mEq/L (97-110); CREATININE 2.5 mg/dL (0.7-1.3); GLOMERULAR FILTRATION RATE 25; GLUCOSE 116 mg/dL (70-100); SODIUM 140 mEq/L (134-144)
[2016-09-11] MEDS: LEVOTHYROXINE 75 MCG TAB PO SCH (06:19)
[2016-09-11] MEDS: CHOLECALCIFEROL VIT D3 1,000 UNITS TAB PO SCH (09:05)
[2016-09-11] MEDS: PRESERVISION AREDS2 FORMULA EYE VIT 1 EACH PO SCH (09:05)
[2016-09-11] MEDS: OMEGA-3 FATTY ACIDS 1,000 MG CAP PO SCH (09:05)
[2016-09-11] MEDS: CLOPIDOGREL BISULFATE 75 MG TAB PO SCH (09:05)
[2016-09-11] MEDS: TAMSULOSIN HCL 0.4 MG CAP PO SCH (09:05)
[2016-09-11] MEDS: METOPROLOL TARTRATE 25 MG TAB PO SCH ×2 (09:06→20:41)
[2016-09-11] MEDS: FUROSEMIDE 20 MG TAB PO SCH (09:06)
[2016-09-11] MEDS: EDOXABAN TOSYLATE 30 MG PO SCH (09:08)
--- NOTE | 2016-09-11 11:30 | HOSPPROG ---
Hospitalist Progress Note Assessment/Plan: Hospitalist Progress Note Assessment/Plan: 85 yo M with MMI including CAD, a fib, dementia pw generalized weakness/acute on chronic decline with likely FTT. # generalized weakness: sounds like more of an acute on chronic picture in the setting of multiple comorbidities and underlying dementia. progression of his underlying dementia and adult onset FTT. PT/OT/CM to be involved Will need SNF after dc. # pyuria: UA showing 15-25 wbc, 1+ leuk esterase and trace bacteria as well as 50-180 RBC which while not clearly infection, given above Cx negative Stop CTX. # elevated trop: in setting of CAD and recent stent placement. No CP or SOB. EKG with no acute Ischemic changes. Per old labs, trop seems to be always elevated to this range however and doubt that this represents ACS. # chronic diastolic CHF: with EF of 75% most recently, Continue op meds. #Leukocytosis: resolved unclear etiol possibly viral or dehydration # ckd: appears to be largely at baseline, though may have a mild component of rafael as well. Hold off on further IVF for now # permanent a fib: now s/p ppm and rate controlled on metop/digoxin. Dig level within normal range. Is on AC at home with Edoxaban, renally dosed. 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 See discussion on AC per above. # dementia: complicating all of above, this does seem to have been a subacute decline in his cognition and he is being followed by Dr. Geronimo of neuro doing better # dispo: IP status, will dc to SNF in the am if remains stable D/W and CM Code status: has living will that stipulates FC, is MDPOA Subjective: Up walking. Feels well. Stronger. No specific issues. Objective: Vital Signs Temp Pulse Resp BP Pulse Ox 36.8 C 68 24 H 118/65 93 09/11/16 11:13 09/11/16 11:13 09/11/16 11:13 09/11/16 11:13 09/11/16 11:13 Laboratory Results 09/11/16 05:00 09/11/16 05:00 09/10/16 09/11/16 09/12/16 05:59 05:59 06:59 Intake Total 515 1185 Output Total 350 350 Balance 165 1185 -350 PT 17.9 SEC (12.0-15.0) H 09/07/16 23:05 INR 1.48 (0.83-1.16) H 09/07/16 23:05 - Physical Exam Constitutional: not in pain, chronically ill appearing Eyes: PERRL, anicteric sclera Ears, Nose, Mouth, Throat: moist mucous membranes, hard of hearing Cardiovascular: No JVD, No edema Respiratory: no respiratory distress, reduced air movement Gastrointestinal: No tenderness, No ascites Skin: warm, No erythema Musculoskeletal: no joint effusions, generalized weakness Psychiatric: not anxious, not encephalopathic, poor judgement, poor memory ICD10 Worksheet Patient Problems: Problems Problem Status Onset Bronchitis Acute Atrial fibrillation Acute DVT (deep venous thrombosis) Acute Urinary tract infection Acute Congestive heart failure Acute Weakness Acute Generalized weakness Acute UTI (urinary tract infection) Acute
[2016-09-11] MEDS: DIGOXIN 125 MCG TAB PO SCH (13:42)
[2016-09-11] MEDS: ATORVASTATIN CALCIUM 40 MG TAB PO SCH (17:08)
[2016-09-11] MEDS: EZETIMIBE 10 MG TAB PO SCH (17:09)
[2016-09-11] MEDS: BICALUTAMIDE 50 MG TAB PO SCH (17:09)
[2016-09-11] MEDS: hydrOXYzine HCL 25 MG TAB PO SCH (17:09)
[2016-09-11] MEDS: DONEPEZIL HCL 5 MG TAB PO SCH (20:41)
[2016-09-12 00:27] VITALS: RESP 16
[2016-09-12 05:22] VITALS: PULSE 70
[2016-09-12] MEDS: LEVOTHYROXINE 75 MCG TAB PO SCH (05:37)
[2016-09-12 07:29] VITALS: BP 132/71; TEMP 97.3; O2SAT 92
[2016-09-12] MEDS: PRESERVISION AREDS2 FORMULA EYE VIT 1 EACH PO SCH (09:01)
[2016-09-12] MEDS: CHOLECALCIFEROL VIT D3 1,000 UNITS TAB PO SCH (09:01)
[2016-09-12] MEDS: CLOPIDOGREL BISULFATE 75 MG TAB PO SCH (09:01)
[2016-09-12] MEDS: FUROSEMIDE 20 MG TAB PO SCH (09:01)
[2016-09-12] MEDS: METOPROLOL TARTRATE 25 MG TAB PO SCH (09:01)
[2016-09-12] MEDS: OMEGA-3 FATTY ACIDS 1,000 MG CAP PO SCH (09:01)
[2016-09-12] MEDS: TAMSULOSIN HCL 0.4 MG CAP PO SCH (09:02)
[2016-09-12] MEDS: EDOXABAN TOSYLATE 30 MG PO SCH (09:08)
--- NOTE | 2016-09-12 11:05 | PDIAF ---
- Diagnosis Diagnosis: dehydration Code Status: Full Code - Medication Management Discharge Medications: Medications to Continue on Transfer Atorvastatin Calcium [Lipitor 80 mg] 80 mg PO DAILY@08/08/15 [Last Taken 01/17] Bicalutamide [Casodex (*)] 50 mg PO DAILY@08/08/15 [Last Taken 09/07/16] Cholecalciferol Vit D3 [Vitamin D3 (*)] 2,000 units PO DAILY 08/08/15 [Last Taken 09/07/16] Ezetimibe [Zetia 10 MG (*)] 10 mg PO DAILY@08/08/15 [Last Taken 09/07/16] Furosemide [Lasix 20 MG (*)] 20 mg PO DAILY@08/08/15 [Last Taken 09/07/16] Metoprolol Tartrate [Lopressor 25 mg (*)] 25 mg PO BID 08/08/15 [Last Taken 01/17 21:00] [place]-3 Fatty Acids [Fish Oil 1000 mg (*)] 1,000 mg PO DAILY@08/08/15 [Last Taken 09/07/16] Tamsulosin HCl [Flomax 0.4 MG (*)] 0.4 mg PO DAILY@08/08/15 [Last Taken 09/07] hydrOXYzine HCL [Hydroxyzine HCl] 25 mg PO DAILY@08/08/15 [Last Taken ] Levothyroxine [Synthroid 75 mcg (*)] 75 mcg PO DAILY06 08/09/15 [Last Taken 01/17] Digoxin [Lanoxin 0.125 mg] 0.125 mg PO SUTUWETHSA #0 tab 08/12/15 [Last Taken ] Digoxin [Lanoxin 0.25 mg] 0.25 mg PO MOFR #0 tab 08/12/15 [Last Taken 09/06/16] Edoxaban Tosylate [Savaysa] 30 mg PO DAILY #0 tablet 08/12/15 [Last Taken ] Clopidogrel Bisulfate [Plavix (*)] 75 mg PO DAILY #30 tab 05/13/16 [Last Taken 09/07/16] Nitroglycerin [Nitrostat 0.4 mg (*)] 0.4 mg SL PRN PRN #1 btl 05/13/16 [Last Taken Unknown] C/E/Zn/Cu/OM3/DHA/EPA/LUT/ZEAX [Preservision Areds 2 Softgel] 1 each PO DAILY [Last Taken 09/07/16] Donepezil HCl 5 mg PO HS 09/08/16 [Last Taken 09/07/16] Acetaminophen [Tylenol 325mg (*)] 650 mg PO Q4HRS PRN #0 tab 09/12/16 [Last Taken Unknown] Albuterol [Proventil Neb] 3 ml IH Q2HRS PRN #0 deyvial 09/12/16 [Last Taken Unknown] Discharge Medications: Refer to the Discharge Home Medication list for PRN reason. PICC Care - Routine: N/A - Orders Services needed: Registered Nurse, Physical Therapy, Occupational Therapy - Follow Up Care Current Providers and Referrals: Rod Meza MD [Primary Care Provider] - As per Instructions
--- NOTE | 2016-09-12 12:46 | GDS ---
[f rep st] DISCHARGE SUMMARY DISCHARGE DIAGNOSES: 1. Generalized weakness. 2. Acute encephalopathy. 3. Pyuria with negative urine culture. 4. Chronically elevated troponins. 5. Chronic diastolic congestive heart failure. 6. Leukocytosis. 7. Chronic kidney disease. 8. Permanent atrial fibrillation. 9. History of pulmonary embolus with inferior vena cava filter. 10. Dementia studies. STUDIES AND PROCEDURES DONE: CT of the head. PHYSICAL EXAM: GENERAL: The patient is alert. VITAL SIGNS: Afebrile at 36.3, pulse is 70, respir atory rate 16, blood pressure is 132/71. He is saturating 92% on room air. I have seen and evaluat ed the patient on the day of discharge. HOSPITAL COURSE: The patient is an 85-year-old male, who presented to the emergency room with compl aints of generalized weakness and confusion. He was evaluated and diagnosed with: 1. Failure to thrive. The patient has had a slow decline over the last several months per his . He was evaluated by Physical Therapy and Occupational Therapy during this hospitalization. 2. Generalized weakness. This is acute on chronic. His weakness is significantly improved. Physi sabrina Therapy is recommending long-term facility at the time of disposition. 3. Pyuria. The patient was treated with IV Rocephin during this hospitalization; however, his urin e culture demonstrated no growth and his antibiotic therapy was discontinued. 4. Chronically elevated troponin. The patient did not require any further cardiac evaluation. No acute ischemic events occurred during this hospitalization. 5. Chronic diastolic congestive heart failure. No acute exacerbation. The patient is at his basel ine. 6. Leukocytosis. The etiology of this is unclear however, it has resolved prior to disposition. T he patient was significantly dehydrated at the time of admission or potentially had a viral infectio n. His condition has significantly improved. 7. Acute encephalopathy. Patient's mentation has returned to his baseline per his , likely sec ondary to his acute process. 8. Chronic kidney disease. The patient's renal function is at baseline. 9. Permanent atrial fibrillation. He is on chronic anticoagulation and this has been continued dur ing this hospital course. 10. History of DVT. The patient has an IVC filter in and is on chronic anticoagulation. 11. Dementia. He follows with Dr. Geronimo of Neurology and is at his baseline. DISPOSITION: The patient will be discharged to [facility] for further rehabilitation and management . I reviewed his disposition with his and Case Management, who is in agreement with this plan. There are no pending studies. Followup will be with his primary care physician, Dr. Rod burnham DISCHARGE MEDICATIONS: Please refer to EMR form. I have not adjusted the patient's previously pres cribed home medications. I spent greater than 35 minutes in the care, coordination, and management of this patient's disposit ion. /[id number]/MODL
== END 2016-09-12 13:26 | DRG 947 ==
LOC: EDUNIT# → F2W 09-08 01:08 → F3N 09-08 20:59 → F3E 09-10 08:32
PROVIDERS: ADMIT Internal Medicine; ATTEND Student in an Organized Health Care Education/Training Program
DX: R53.1 Weakness (principal); G93.40 Encephalopathy, unspecified; N39.0 Urinary tract infection, site not specified; I50.32 Chronic diastolic (congestive) heart failure; N18.9 Chronic kidney disease, unspecified; I48.2 Chronic atrial fibrillation; R62.7 Adult failure to thrive; F03.90 Unspecified dementia, unspecified severity, without behavioral disturbance, psychotic disturbance, mood disturbance, and anxiety; I12.9 Hypertensive chronic kidney disease with stage 1 through stage 4 chronic kidney disease, or unspecified chronic kidney disease; I25.10 Atherosclerotic heart disease of native coronary artery without angina pectoris; E78.5 Hyperlipidemia, unspecified; Z86.711 Personal history of pulmonary embolism; Z85.46 Personal history of malignant neoplasm of prostate; Z95.5 Presence of coronary angioplasty implant and graft
CPT/HCPCS: 80305; 82607-90; 96365; 97110-GP; 97116-GP; 97162-GP; 97166-GO; 97530-GO; 97530-GP; 97535-GO; G8978-GP-CK; G8979-GP-CI; G8987-GO-CL; G8988-GO-CJ; J0696

== ENCOUNTER 2016-10-13 13:46 | Emergency (ER) | payer OTHER ==
[2016-10-13 13:54] VITALS: PULSE 69; RESP 18
[2016-10-13 14:34] LABS: ABSOLUTE IMMATURE GRANULOCYTES 0.07 10^3/uL (0.00-0.10); ADD DIFF? NO; ADD MORPH? NO; ADD SCAN? NO; ATYPICAL LYMPHOCYTE FLAG 10 (0-99); FRAGMENT RBC FLAG 0 (0-99); HEMATOCRIT 41.3 % (40.0-51.0); HEMOGLOBIN 13.7 g/dL (13.7-17.5); LEFT SHIFT FLG 10 (0-99); LIPEMIA HEMOLYSIS FLAG 80 (0-99); MEAN CELL HEMOGLOBIN 31.5 pg (27.9-34.1); MEAN CELL HEMOGLOBIN CONCENTR. 33.2 g/dL (32.4-36.7); MEAN CELL VOLUME 94.9 fL (81.5-99.8); MEAN PLATELET VOLUME 11.6 fL (8.7-11.7); PLATELET CLUMPS FLAG 10 (0-99); PLATELET COUNT 140 10^3/uL (150-400); RED BLOOD CELL COUNT 4.35 10^6/uL (4.40-6.38); RED CELL DISTRIBUTION WIDTH 14.3 % (11.5-15.2)
[2016-10-13 14:50] LABS: ANION GAP 11 mEq/L (8-16); CALCIUM 9.7 mg/dL (8.5-10.4); CARBON DIOXIDE 28 mEq/l (22-31); CHLORIDE 103 mEq/L (97-110); CREATININE 2.6 mg/dL (0.7-1.3); GLOMERULAR FILTRATION RATE 24; GLUCOSE 86 mg/dL (70-100); POTASSIUM 4.5 mEq/L (3.5-5.2); SODIUM 142 mEq/L (134-144)
--- NOTE | 2016-10-13 15:27 | EDPHY ---
H & P Stated Complaint: Right eye problem, right side weakness x 4 days, sent by Neuro Dr Wong Time Seen by Provider: 10/13/16 14:47 HPI/ROS: CHIEF COMPLAINT: Blurred vision right eye, right-sided weakness HISTORY OF PRESENT ILLNESS: This is an 85-year-old gentleman brought to the emergency department by . Patient was seen as a primary care office today, was sent for evaluation of a decrease in vision in right eye with right sided weakness. Patient states that in the morning his vision is tunnel vision then as the day progresses his vision gets better. said he was seen a month ago for similar symptoms, but patient stated he feels increased weakness on right side. No chest pain no headache. Patient uses walker, states patient is normally incontinent. REVIEW OF SYSTEMS: Constitutional: No fever chills Eyes: Decreased peripheral vision in right eye ENT: No sore throat Respiratory: No shortness of breath Cardiac: No chest pain Gastrointestinal: No nausea vomiting Musculoskeletal: No back pain Skin: No rash Neurological: No headache or dizziness T Source: Patient, Family - Personal History Current Tetanus Diphtheria and Acellular Pertussis (TDAP): Yes Tetanus Vaccine Date: 2011 - Medical/Surgical History Hx Asthma: No Hx Chronic Respiratory Disease: Yes Hx Diabetes: No Hx Cardiac Disease: Yes Hx Renal Disease: Yes Hx Cirrhosis: No Hx Alcoholism: No Hx HIV/AIDS: No Hx Splenectomy or Spleen Trauma: Yes Other PMH: PMH- AFIB W/ RVR, DVT W/ IVC FILTER, KIDNEY STONES, CAD W/ 4 STENTS, SLEEP APNEA W/ HOME O2, SEPSIS, HTN, HLD, LA POSTA, CKD, PROSTATE CA, ISCHEMIC CARDIOMYOPATHY, CHF W/ EF 45% W/ DIASTOLIC FXN. PSH- OCTAVIO, CARDIAC STENT X4, KIDNEY TUMOR RESECTED, CERVICAL SPINE FUSION, LUMBAR FUSION, TONSILECTOMY - Social History Smoking Status: Never smoked - Physical Exam Exam: General Appearance: Alert, no distress. Eyes: Pupils equal and round no pallor or injection. Equal bilateral peripheral vision ENT, Mouth: Mucous membranes moist. Respiratory: There are no retractions, lungs are clear to auscultation. Cardiovascular: RRR paced on EKG, no murmur no gallop Gastrointestinal: Abdomen is soft and nontender, no masses, bowel sounds normal. Neurological: Slow to answer questions, [id number] wears hearing aids. No focal deficits Skin: Warm and dry, no rashes. Musculoskeletal: Neck is supple nontender. Extremities are symmetrical, full range of motion. 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 Constitutional: Initial Vital Signs Temperature (C) 36.7 C 10/13/16 13:51 Heart Rate 69 10/13/16 13:51 Respiratory Rate 18 10/13/16 13:51 Blood Pressure 110/65 10/13/16 13:51 O2 Sat (%) 92 10/13/16 13:51 O2 Delivery Mode Room Air O2 (L/minute) 1 Allergies/Adverse Reactions: No Allergies [NKA] Allergy (Verified 09/04/14 18:03) Home Medications: Medication Instructions Recorded Atorvastatin Calcium [Lipitor 80 80 mg PO DAILY@08/08/15 mg] Bicalutamide [Casodex (*)] 50 mg PO DAILY@08/08/15 Cholecalciferol Vit D3 [Vitamin D3 2,000 units PO DAILY 08/08/15 (*)] Ezetimibe [Zetia 10 MG (*)] 10 mg PO DAILY@08/08/15 Furosemide [Lasix 20 MG (*)] 20 mg PO DAILY@08/08/15 Metoprolol Tartrate [Lopressor 25 25 mg PO BID 08/08/15 mg (*)] [place]-3 Fatty Acids [Fish Oil 1000 1,000 mg PO DAILY@08/08/15 mg (*)] Tamsulosin HCl [Flomax 0.4 MG (*)] 0.4 mg PO DAILY@08/08/15 hydrOXYzine HCL [Hydroxyzine HCl] 25 mg PO DAILY@08/08/15 Levothyroxine [Synthroid 75 mcg 75 mcg PO DAILY06 08/09/15 (*)] Digoxin [Lanoxin 0.125 mg] 0.125 mg PO SUTUWETHSA #0 tab 08/12/15 Digoxin [Lanoxin 0.25 mg] 0.25 mg PO MOFR #0 tab 08/12/15 Edoxaban Tosylate [Savaysa] 30 mg PO DAILY #0 tablet 08/12/15 Clopidogrel Bisulfate [Plavix (*)] 75 mg PO DAILY #30 tab 05/13/16 Nitroglycerin [Nitrostat 0.4 mg 0.4 mg SL PRN PRN #1 btl 05/13/16 (*)] C/E/Zn/Cu/OM3/DHA/EPA/LUT/ZEAX 1 each PO DAILY 09/08/16 [Preservision Areds 2 Softgel] Donepezil HCl 5 mg PO HS 09/08/16 Acetaminophen [Tylenol 325mg (*)] 650 mg PO Q4HRS PRN #0 tab 09/12/16 Albuterol [Proventil Neb] 3 ml IH Q2HRS PRN #0 deyvial 09/12/16 Medical Decision Making - Diagnostics Imaging: Imaging Impressions Head CT 10/13/16 15:06 Impression: 1. Elderly brain with atrophy and probable white matter small vessel disease. 2. Negative for post traumatic hemorrhage. 3. See above report for additional findings. Results called and discussed with Yael Tracy NP on 10/13/2016 at 16:09 ED Course/Re-evaluation: Discussed plan of care: CT head, , EKG, Chem 7, CBC, troponin 1610: Spoke with Dr. Morris and significant atrophy seen on CT but no acute findings 1620: IOP noted @12 1625: Discussed results no acute findings with patient and patient's . Patient's stated she felt comfortable and safe taking patient home and will follow up with primary care physician tomorrow or Tuesday. Will also make an appointment with Ophthalmology for evaluation. Discharge home---> stable, discussed discharge instructions Differential Diagnosis: Differential diagnosis considered not limited to acute closed angle glaucoma, Detached retina, CVA and PR - Data Points Laboratory Results: Laboratory Results 10/13/16 14:15 10/13/16 14:15 10/13/16 10/13/16 10/13/16 15:09 14:15 14:15 WBC 7.31 10^3/uL 10^3/uL (3.80-9.50) RBC 4.35 10^6/uL L 10^6/uL (4.40-6.38) Hgb 13.7 g/dL g/dL (13.7-17.5) Hct 41.3 % % (40.0-51.0) MCV 94.9 fL fL (81.5-99.8) MCH 31.5 pg pg (27.9-34.1) MCHC 33.2 g/dL g/dL (32.4-36.7) RDW 14.3 % % (11.5-15.2) Plt Count 140 10^3/uL L 10^3/uL (150-400) MPV 11.6 fL fL (8.7-11.7) Neut % (Auto) 71.7 % % (39.3-74.2) Lymph % (Auto) 12.4 % L % (15.0-45.0) Meagher % (Auto) 13.4 % H % (4.5-13.0) Eos % (Auto) 1.2 % % (0.6-7.6) Baso % (Auto) 0.3 % % (0.3-1.7) Nucleat RBC Rel Count 0.0 % % (0.0-0.2) Absolute Neuts (auto) 5.24 10^3/uL 10^3/uL (1.70-6.50) Absolute Lymphs (auto) 0.91 10^3/uL L 10^3/uL (1.00-3.00) Absolute Monos (auto) 0.98 10^3/uL H 10^3/uL (0.30-0.80) Absolute Eos (auto) 0.09 10^3/uL 10^3/uL (0.03-0.40) Absolute Basos (auto) 0.02 10^3/uL 10^3/uL (0.02-0.10) Absolute Nucleated RBC 0.00 10^3/uL 10^3/uL (0-0.01) Immature Gran % 1.0 % % (0.0-1.1) Immature Gran # 0.07 10^3/uL 10^3/uL (0.00-0.10) Sodium 142 mEq/L mEq/L (134-144) Potassium 4.5 mEq/L mEq/L (3.5-5.2) Chloride 103 mEq/L mEq/L (97-110) Carbon Dioxide 28 mEq/l mEq/l (22-31) Anion Gap 11 mEq/L mEq/L (8-16) BUN 36 mg/dL H mg/dL (7-23) Creatinine 2.6 mg/dL H mg/dL (0.7-1.3) Estimated GFR 24 Glucose 86 mg/dL mg/dL (70-100) Calcium 9.7 mg/dL mg/dL (8.5-10.4) Troponin I 0.039 ng/mL H ng/mL (0-0.034) Departure - Departure Disposition: Home, Routine, Self-Care Clinical Impression: Generalized weakness Condition: Good Instructions: Weakness (ED) Additional Instructions: 1. Discussed with patient and follow up with primary care provider tomorrow or Tuesday 2. Follow up with Ophthalmology tomorrow or Tuesday 3. If it anything changes symptoms worsen return to the emergency department Referrals: Rod Meza MD [Primary Care Provider] - As per Instructions
[2016-10-13 15:29] LABS: TROPONIN I 0.039 ng/mL (0-0.034)
--- NOTE | 2016-10-13 15:55 | CPEKG ---
Heart Rate: 69 RR Interval: 870 P-R Interval: 181 QRSD Interval: 146 QT Interval: 432 QTC Interval: 463 P [place]: -23 QRS [place]: -32 T Wave [place]: 120 EKG Severity - ABNORMAL ECG - EKG Impression: VENTRICULAR-PACED RHYTHM Electronically Signed By: Abdirashid Naylor 13-Oct-2016 16:02:39
[2016-10-13 16:21] VITALS: BP 122/74; TEMP 97.9; O2SAT 96
== END 2016-10-13 16:37 | disposition home or self-care (01) ==
DX: R53.1 Weakness (principal); I25.10 Atherosclerotic heart disease of native coronary artery without angina pectoris; I50.9 Heart failure, unspecified; I12.9 Hypertensive chronic kidney disease with stage 1 through stage 4 chronic kidney disease, or unspecified chronic kidney disease; N18.9 Chronic kidney disease, unspecified; Z95.5 Presence of coronary angioplasty implant and graft

== ENCOUNTER 2016-10-15 08:45 | Emergency (ER) | payer OTHER ==
--- NOTE | 2016-10-15 09:13 | EDPHY ---
H & P Time Seen by Provider: 10/15/16 08:57 HPI/ROS: Chief complaint. Visual change HPI. [age]-year-old male with decreased vision for 1 week. Seen in the emergency department 2 days ago with relatively normal workup including normal noncontrast head CT. He describes his vision in the right eye as fuzzy and seems improved somewhat during the day. Dr. Wong, neurologist at [facility], called me this morning and advised me the patient was coming in an asks us to give the patient Solu-Medrol 1000 mg IV. She has scheduled an outpatient CTA of head and neck and asked me to get this today if possible. 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 ROS Constitutional. no fever/chills, no weakness Eyes. Decreased vision right eye ENT. no sore throat, no nasal drainage Cardiovascular. no chest pain Respiratory. no shortness of breath, no cough Abdominal. no abdominal pain, no nausea/vomiting, no diarrhea . no problems urinating MS. no calf pain/swelling, no neck/back pain, no joint pain Skin. no rash Lymph. no swollen glands Neuro. no headache, no dizziness, no difficulty walking or with speech Past Medical/Surgical History: Past medical history atrial fibrillation, DVT with IVC filter, kidney stones, coronary artery disease with 4 stents, sleep apnea, sepsis, hypertension, prostate cancer, ischemic cardiomyopathy, CHF, cholecystectomy, kidney tumor resected, cervical spine fusion, lumbar fusion, tonsillectomy Social History: nonsmoker no alcohol Smoking Status: Never smoked Physical Exam: General Appearance: Alert well-developed male mild distress vital signs are stable Eyes: Pupils are quite small and poorly reactive. I am unable to visualize the retina. ENT, Mouth: Mucous membranes are moist. Respiratory: There are no retractions, lungs are clear to auscultation. Cardiovascular: Regular rate and rhythm. Gastrointestinal: Abdomen is soft and nontender, no masses, bowel sounds normal. Neurological: Awake and alert, sensory and motor exams grossly normal. Skin: Warm and dry, no rashes. Musculoskeletal: Neck is supple nontender. Extremities symmetrical, full range of motion. Psychiatric: Patient is oriented X 3, there is no agitation. Constitutional: Initial Vital Signs Temperature (C) 36.4 C 10/15/16 08:45 Heart Rate 71 10/15/16 08:45 Respiratory Rate 18 /14/17 08:45 Blood Pressure 114/63 10/15/16 08:45 O2 Sat (%) 93 10/15/16 08:45 O2 Delivery Mode Room Air Allergies/Adverse Reactions: No Allergies [NKA] Allergy (Verified 10/15/16 08:51) Home Medications: Medication Instructions Recorded Atorvastatin Calcium [Lipitor 80 80 mg PO DAILY@08/08/15 mg] Bicalutamide [Casodex (*)] 50 mg PO DAILY@08/08/15 Cholecalciferol Vit D3 [Vitamin D3 2,000 units PO DAILY 08/08/15 (*)] Ezetimibe [Zetia 10 MG (*)] 10 mg PO DAILY@08/08/15 Furosemide [Lasix 20 MG (*)] 20 mg PO DAILY@08/08/15 Metoprolol Tartrate [Lopressor 25 25 mg PO BID 08/08/15 mg (*)] [place]-3 Fatty Acids [Fish Oil 1000 1,000 mg PO DAILY@08/08/15 mg (*)] Tamsulosin HCl [Flomax 0.4 MG (*)] 0.4 mg PO DAILY@08/08/15 hydrOXYzine HCL [Hydroxyzine HCl] 25 mg PO DAILY@08/08/15 Levothyroxine [Synthroid 75 mcg 75 mcg PO DAILY06 08/09/15 (*)] Digoxin [Lanoxin 0.125 mg] 0.125 mg PO SUTUWETHSA #0 tab 08/12/15 Digoxin [Lanoxin 0.25 mg] 0.25 mg PO MOFR #0 tab 08/12/15 Edoxaban Tosylate [Savaysa] 30 mg PO DAILY #0 tablet 08/12/15 Clopidogrel Bisulfate [Plavix (*)] 75 mg PO DAILY #30 tab 05/13/16 Nitroglycerin [Nitrostat 0.4 mg 0.4 mg SL PRN PRN #1 btl 05/13/16 (*)] C/E/Zn/Cu/OM3/DHA/EPA/LUT/ZEAX 1 each PO DAILY 09/08/16 [Preservision Areds 2 Softgel] Donepezil HCl 5 mg PO HS 09/08/16 Acetaminophen [Tylenol 325mg (*)] 650 mg PO Q4HRS PRN #0 tab 09/12/16 Albuterol [Proventil Neb] 3 ml IH Q2HRS PRN #0 deyvial 09/12/16 Medical Decision Making Procedures: IV normal saline. I-STAT is obtained which shows the patient's creatinine to be 2.7 Patient is given 1000 mg of Solu-Medrol intravenously Review of patient's labs shows chronic renal insufficiency. Creatinine is high enough that we do not want to give the patient IV contrast ED Course/Re-evaluation: Weak all to the [facility] as the patient and his were awaiting call back for scheduled for temporal artery biopsy today. There is nothing scheduled. I discussed the case with Dr. Dunawya, neurology, who has been in conversation with Dr. Hernández, ENT, trying to schedule the biopsy. It may be today or might be delayed. I will discuss this with the patient's . Dr. Wong is also notified that the patient has an elevated creatinine in that is chronic and we will not be doing further imaging with contrast studies today. She is fine with that. Dr. Wong is trying to set up outpatient Solu-Medrol treatment however the patient may return to the emergency department for 2 more days of Solu-Medrol Differential Diagnosis: Apparent giant cell arteritis. Also consideration is CVA including hemorrhage. - Data Points Laboratory Results: 10/15/16 09:12 POC Hgb 14.6 gm/dL gm/dL (14.5-17.3) POC Hct 43 % % (42.8-50.6) POC Sodium 143 mEq/L mEq/L (134-144) POC Potassium 3.7 mEq/L mEq/L (3.3-5.0) POC Chloride 103 mEq/L mEq/L (96-108) POC BUN 33 mg/dL H mg/dL (7-23) POC Creatinine 2.7 mg/dL H mg/dL (0.8-1.5) POC Glucose 151 mg/dL H mg/dL (70-100) Point of Care Test Results: 10/15/16 09:12 POC Sodium 143 POC Potassium 3.7 POC Chloride 103 POC BUN 33 H POC Creatinine 2.7 H POC Glucose 151 H Departure - Departure Disposition: Home, Routine, Self-Care Clinical Impression: Giant cell arteritis Condition: Fair Instructions: Temporal Arteritis (ED) Additional Instructions: Dr. Wong is trying to set up home therapy for steroids but you may need to return Tuesday and Tuesday for further IV Solu-Medrol for if Dr. Wong is not able to arrange home therapy. Dr. Wong is also in discussion with Dr. Hernández, ENT, to arrange the temporal artery biopsy. Due to blood thinners it may be either this afternoon or may need to be delayed. Return for worsening symptoms Referrals: Rod Meza MD [Primary Care Provider] - As per Instructions Nai Wong DO [Non Staff and Non MD] - As per Instructions
[2016-10-15] MEDS ORDERED: methylPREDNISolone SOD SUCC 1 GM in NS 100 ML IV ONE (09:20)
[2016-10-15] MEDS ORDERED: ONDANSETRON 4 MG/2 ML VIAL IVP ONE (11:09)
[2016-10-15 11:20] VITALS: BP 139/78; PULSE 70; RESP 16; TEMP 97.9; O2SAT 90
== END 2016-10-15 11:20 | disposition home or self-care (01) ==
DX: M31.6 Other giant cell arteritis (principal); I50.9 Heart failure, unspecified; I10 Essential (primary) hypertension; I25.10 Atherosclerotic heart disease of native coronary artery without angina pectoris; Z95.5 Presence of coronary angioplasty implant and graft; Z85.46 Personal history of malignant neoplasm of prostate
CPT/HCPCS: 96365; 96375; 99284; J2405; J2930; 82947-QW

== ENCOUNTER 2016-10-18 14:35 | Day surgery (SDC) | payer OTHER ==
[2016-10-18] MEDS ORDERED: BUPIVACAINE 0.5% 30 ML SDV ONE (15:31)
[2016-10-18] MEDS ORDERED: LIDOCAINE 1% 5 ML SDV ID PRN (15:35)
[2016-10-18] MEDS ORDERED: LR 1,000 ML IV ONE ×2 (15:35→16:32)
[2016-10-18] MEDS ORDERED: fentaNYL 100 MCG/2 ML INJ ONE (16:13)
[2016-10-18] MEDS ORDERED: LIDOCAINE 2% 5 ML SDV ONE (16:13)
[2016-10-18] MEDS ORDERED: PROPOFOL/EMULSION 500 MG/50 ML BOTTLE IV ONE (16:13)
[2016-10-18] MEDS ORDERED: BUPIVACAINE/EPI 0.25% 30 ML SDV ONE (16:13)
[2016-10-18] MEDS ORDERED: ONDANSETRON 4 MG/2 ML VIAL ONE (16:14)
[2016-10-18] MEDS ORDERED: DEXAMETHASONE 4 MG/ML VIAL ONE (16:14)
== END 2016-10-18 19:30 | disposition home or self-care (01) ==
LOC: FSGY 14:35
PROVIDERS: ATTEND Otolaryngology
PROC: 03BS0ZX Excision of Right Temporal Artery, Open Approach, Diagnostic (ICD-10-PCS; principal; 2016-10-18 15:45)
DX: H53.121 Transient visual loss, right eye (principal); I77.89 Other specified disorders of arteries and arterioles; I25.10 Atherosclerotic heart disease of native coronary artery without angina pectoris; Z95.0 Presence of cardiac pacemaker; Z95.1 Presence of aortocoronary bypass graft; I50.9 Heart failure, unspecified; I48.91 Unspecified atrial fibrillation; G47.33 Obstructive sleep apnea (adult) (pediatric); Z98.1 Arthrodesis status; Z85.46 Personal history of malignant neoplasm of prostate
CPT/HCPCS: J1100; J2405; J2704; J3010

== ENCOUNTER → 2016-10-22 | Outpatient (CLI) | payer OTHER | LOC: BMCIMAGING 10:41 | PROVIDERS: ATTEND Psychiatry & Neurology Neurology | DX: H53.121 Transient visual loss, right eye (principal) ==

== ENCOUNTER 2016-10-24 14:09 | Emergency (ER) | payer OTHER ==
[2016-10-24 14:26] VITALS: PULSE 68; RESP 18
[2016-10-24 15:04] LABS: COLOR RED; LEUKOCYTE ESTERASE,URINE NEGATIVE (NEGATIVE); NITRITE,URINE POSITIVE (NEGATIVE)
--- NOTE | 2016-10-24 15:19 | EDPHY ---
H & P Time Seen by Provider: 10/24/16 15:00 HPI/ROS: CHIEF COMPLAINT: Urinary incontinence. HISTORY OF PRESENT ILLNESS: The patient is an 85-year-old male who presents with one month of incontinence. He initially had a small amount of urinary control but now has no control over his urination. He admits associated post- voiding pain in his penis. He saw his doctor last week for this complaint. UTI earlier this month and recently took Bactrim without relief. No abdominal pain , vomiting or fever. REVIEW OF SYSTEMS: A complete 10-point review of systems was performed and is negative except for those items mentioned in the HPI. Past Medical/Surgical History: Ischemic cardiomyopathy, CHF, cholecystectomy, cardiac stent x4, kidney tumor resection, c-spine fusion, lumbar fusion, tonsillectomy. Social History: . Smoking Status: Never smoked Physical Exam: General Appearance: Alert, well-appearing Eyes: Pupils equal and round ENT, Mouth: Mucous membranes moist Neck: Normal inspection Respiratory: Lungs are clear to auscultation Cardiovascular: Regular rate and rhythm Gastrointestinal: Abdomen is soft, suprapubic tenderness Neurological: A&O, nonfocal exam, hard of hearing Skin: Warm and dry, no rash Extremities: Normal inspection Psychiatric: Mood and affect normal Constitutional: Initial Vital Signs Temperature (C) 36.8 C 10/24/16 14:15 Heart Rate 68 10/24/16 14:15 Respiratory Rate 18 10/24/16 14:15 Blood Pressure 125/71 H 10/24/16 14:15 O2 Sat (%) 95 10/24/16 14:15 O2 Delivery Mode Room Air Allergies/Adverse Reactions: No Allergies [NKA] Allergy (Verified 10/15/16 08:51) Home Medications: Medication Instructions Recorded Atorvastatin Calcium [Lipitor 80 80 mg PO DAILY@08/08/15 mg] Bicalutamide [Casodex (*)] 50 mg PO DAILY@08/08/15 Cholecalciferol Vit D3 [Vitamin D3 2,000 units PO DAILY 08/08/15 (*)] Ezetimibe [Zetia 10 MG (*)] 10 mg PO DAILY@08/08/15 Furosemide [Lasix 20 MG (*)] 20 mg PO DAILY@08/08/15 Metoprolol Tartrate [Lopressor 25 25 mg PO BID 08/08/15 mg (*)] [place]-3 Fatty Acids [Fish Oil 1000 1,000 mg PO DAILY@08 08/08/15 mg (*)] Tamsulosin HCl [Flomax 0.4 MG (*)] 0.4 mg PO DAILY@08 08/08/15 hydrOXYzine HCL [Hydroxyzine HCl] 25 mg PO DAILY@18 08/08/15 Levothyroxine [Synthroid 75 mcg 75 mcg PO DAILY06 08/09/15 (*)] Digoxin [Lanoxin 0.125 mg] 0.125 mg PO SUTUWETHSA #0 tab 08/12/15 Digoxin [Lanoxin 0.25 mg] 0.25 mg PO MOFR #0 tab 08/12/15 Edoxaban Tosylate [Savaysa] 30 mg PO DAILY #0 tablet 08/12/15 Clopidogrel Bisulfate [Plavix (*)] 75 mg PO DAILY #30 tab 05/13/16 Nitroglycerin [Nitrostat 0.4 mg 0.4 mg SL PRN PRN #1 btl 05/13/16 (*)] C/E/Zn/Cu/OM3/DHA/EPA/LUT/ZEAX 1 each PO DAILY 09/08/16 [Preservision Areds 2 Softgel] Donepezil HCl 5 mg PO HS 09/08/16 Acetaminophen [Tylenol 325mg (*)] 650 mg PO Q4HRS PRN #0 tab 09/12/16 CLOTRIMAZOLE [GYNE-LOTRIMIN] 100 mg TUBE 10/24/16 Cefdinir [Omnicef (*)] 300 mg PO BID #40 cap 10/24/16 Cefdinir [Omnicef (*)] 300 mg PO BID #40 cap 10/24/16 Phenazopyridine HCl [Azo Urinary 10/24/16 Pain Relief] Medical Decision Making ED Course/Re-evaluation: 85-year-old male with recent history of UTIs presents with total urinary incontinence and post-voiding pain. He saw his urologist last week for this complaint. On exam he is tender in the suprapubic region. Urinalysis ordered. Bladder scan to be obtained. Urinalysis consistent with UTI: 50-182 RBCs, 50-182 WBCs. Bladder scan reveals less than 40 mL of urine in the bladder. Prior urine cultures reviewed, multiple prior cultures positive for Proteus, sensitive to cephalosporins. I will change the patient's antibiotic to Omnicef and have him follow up with Dr. Pettit in the office. He will be given a [place] pre-pack for pain. I do not suspect that this patient has a kidney stone or pyelonephritis. Differential Diagnosis: Differential diagnosis includes does not limited to kidney stone, pyelonephritis , urinary retention, urosepsis. - Data Points Laboratory Results: 10/24/16 14:50 Urine Color RED Urine Appearance MODERATELY TURBID Urine pH 6.0 (5.0-7.5) Ur Specific [place] 1.014 (1.002-1.030) Urine Protein 2+ H (NEGATIVE) Urine Ketones NEGATIVE (NEGATIVE) Urine Blood 2+ H (NEGATIVE) Urine Nitrate POSITIVE H (NEGATIVE) Urine Bilirubin NEGATIVE (NEGATIVE) Urine Urobilinogen 2.0 EU H EU (0.2-1.0) Ur Leukocyte Esterase NEGATIVE (NEGATIVE) Urine RBC 50-182 /hpf H /hpf (0-3) Urine WBC 50-182 /hpf H /hpf (0-3) Ur Epithelial Cells TRACE /lpf /lpf (NONE-1+) Urine Bacteria 1+ /hpf H /hpf (NONE SEEN) Urine Mucus TRACE /lpf /lpf (NONE-1+) Urine Glucose NEGATIVE (NEGATIVE) Medications Given: Discontinued Medications Hydrocodone Bitart/Acetaminophen ([place] 5/325mg Prepack#6) 1 btl TAKEHOME EDNOW ONE Stop: 10/24/16 16:28 Last Admin: 10/24/16 16:46 Dose: 1 btl Cefdinir (Omnicef) 300 mg PO EDNOW ONE PRN Reason: Protocol Stop: 10/24/16 15:51 Last Admin: 10/24/16 16:43 Dose: 300 mg Departure - Departure Disposition: Home, Routine, Self-Care Clinical Impression: UTI (urinary tract infection) Qualifiers: Urinary tract infection type: site unspecified Hematuria presence: with hematuria Qualified Code(s): N39.0 - Urinary tract infection, site not specified Condition: Good Instructions: Hydrocodone/Acetaminophen (By mouth), Urinary Tract Infection in Men (ED) Additional Instructions: Call Dr. Pettit tomorrow morning to set up a follow up appointment. Take Omnicef as prescribed. Return for any concerns. Referrals: Rod Meza MD [Primary Care Provider] - As per Instructions Fredy Pettit MD [Medical Doctor] - As per Instructions Prescriptions: Cefdinir [Omnicef (*)] 300 mg PO BID #40 cap Cefdinir [Omnicef (*)] 300 mg PO BID #40 cap Report Scribed for: Sangita Flood Report Scribed by: Cedrick Lee Date of Report: 10/24/16 Time of Report: 15:19 Physician Review and Approval Statement: 10/24/16 15:27 Portions of this note were transcribed by a medical accountant. I personally performed a history, physical exam, medical decision making, and confirmed accuracy of information the transcribed note.
[2016-10-24 15:34] LABS: BACTERIA 1+ /hpf (NONE SEEN); MUCUS TRACE /lpf (NONE-1+); RBC,URINE 50-182 /hpf (0-3); WBC,URINE 50-182 /hpf (0-3)
[2016-10-24] MEDS ORDERED: CEFDINIR 300 MG CAP PO ONE (15:50)
[2016-10-24] MEDS ORDERED: HYDROCOD/APAP 5/325 PREPACK#6 BTL TAKEHOME ONE (16:27)
[2016-10-24 16:49] VITALS: BP 128/71; TEMP 97.9; O2SAT 97
== END 2016-10-24 16:48 | disposition home or self-care (01) ==
DX: N39.0 Urinary tract infection, site not specified (principal); B96.4 Proteus (mirabilis) (morganii) as the cause of diseases classified elsewhere; I50.9 Heart failure, unspecified; Z95.5 Presence of coronary angioplasty implant and graft

== ENCOUNTER 2016-10-28 04:55 | Inpatient (IN) | payer OTHER ==
--- NOTE | 2016-10-28 05:18 | EDPHY ---
H & P Stated Complaint: bloody urine, pain HPI/ROS: Chief Complaint: Hematuria and bladder pain HPI: 86-year-old male known to Dr. Pettit with a history of prostate cancer and a resistant urinary tract infection. Patient has been having symptoms of urinary tract infection for over a month. He has been on several different antibiotics which have proven to be unsuccessful in treating his infection. Patient was seen by his urologist yesterday. This morning the patient has been having increasing pain and passing increasing blood and clots in his urine. Patient is on Edoxaban as a blood thinner. He has been having some blood in his urine over the last week or 2 but is significantly worse this morning. No nausea or vomiting. No fevers or chills. ROS: 10 point Review of Systems is negative except as noted in the HPI. PMH: Ischemic cardiomyopathy, coronary artery disease, cardiac stenting x4, CHF , cholecystectomy, renal tumor resection, C-spine fusion, lumbar fusion, tonsillectomy, prostate CA Social History: Never smoked Family History: non-contributory Physical Exam: Gen: Awake, Alert, No Distress HEENT: Nose: no rhinorrhea Eyes: PERRLA, EOMI Mouth: Moist mucosa Neck: Supple, no JVD Chest: nontender, lungs clear to auscultation Heart: S1, S2 normal, no murmur Abd: Soft, bladder is distended with discomfort with palpation, no guarding Back: no CVA tenderness, no midline tenderness Ext: no edema, non-tender Skin: no rash Neuro: CN II-XII intact, Sensation grossly intact, Strength 5/5 in bilateral upper and lower extremities - Personal History Tetanus Vaccine Date: 2011 - Medical/Surgical History Hx Asthma: No Hx Chronic Respiratory Disease: Yes Hx Diabetes: No Hx Cardiac Disease: Yes Hx Renal Disease: Yes Hx Cirrhosis: No Hx Alcoholism: No Hx HIV/AIDS: No Hx Splenectomy or Spleen Trauma: Yes Other PMH: PMH- AFIB W/ RVR, DVT W/ IVC FILTER, KIDNEY STONES, CAD W/ 4 STENTS, SLEEP APNEA W/ HOME O2, SEPSIS, HTN, HLD, SHISHMAREF IRA, CKD, PROSTATE CA w/radium seeds, ISCHEMIC CARDIOMYOPATHY, CHF W/ EF 45% W/ DIASTOLIC FXN. PSH- OCTAVIO, CARDIAC STENT X4, KIDNEY TUMOR RESECTED, CERVICAL SPINE FUSION, LUMBAR FUSION, TONSILECTOMY - Social History Smoking Status: Never smoked Constitutional: Initial Vital Signs Temperature (C) 36.4 C 10/28/16 04:58 Heart Rate 74 10/28/16 04:58 Respiratory Rate 20 10/28/16 04:58 Blood Pressure 146/72 H 10/28/16 04:58 O2 Sat (%) 96 10/28/16 04:58 O2 Delivery Mode Room Air Allergies/Adverse Reactions: No Allergies [NKA] Allergy (Verified 10/28/16 04:57) Home Medications: Medication Instructions Recorded Atorvastatin Calcium [Lipitor 80 80 mg PO DAILY@08/08/15 mg] Bicalutamide [Casodex (*)] 50 mg PO DAILY@08/08/15 Cholecalciferol Vit D3 [Vitamin D3 2,000 units PO DAILY 08/08/15 (*)] Ezetimibe [Zetia 10 MG (*)] 10 mg PO DAILY@08/08/15 Furosemide [Lasix 20 MG (*)] 20 mg PO DAILY@08/08/15 Metoprolol Tartrate [Lopressor 25 25 mg PO BID 08/08/15 mg (*)] [place]-3 Fatty Acids [Fish Oil 1000 1,000 mg PO DAILY@08/08/15 mg (*)] Tamsulosin HCl [Flomax 0.4 MG (*)] 0.4 mg PO DAILY@08/08/15 hydrOXYzine HCL [Hydroxyzine HCl] 25 mg PO DAILY@08/08/15 Levothyroxine [Synthroid 75 mcg 75 mcg PO DAILY06 08/09/15 (*)] Digoxin [Lanoxin 0.125 mg] 0.125 mg PO SUTUWETHSA #0 tab 08/12/15 Digoxin [Lanoxin 0.25 mg] 0.25 mg PO MOFR #0 tab 08/12/15 Edoxaban Tosylate [Savaysa] 30 mg PO DAILY #0 tablet 08/12/15 Clopidogrel Bisulfate [Plavix (*)] 75 mg PO DAILY #30 tab 05/13/16 C/E/Zn/Cu/OM3/DHA/EPA/LUT/ZEAX 1 each PO DAILY 09/08/16 [Preservision Areds 2 Softgel] CLOTRIMAZOLE [GYNE-LOTRIMIN] 100 mg TUBE 10/24/16 Cefdinir [Omnicef (*)] 300 mg PO BID #40 cap 10/24/16 Phenazopyridine HCl [Azo Urinary 10/24/16 Pain Relief] Medical Decision Making ED Course/Re-evaluation: 86-year-old male presenting with urinary tract infection nap lasting blood clots. I have reviewed his medical record. He was seen 4 days ago and diagnosed with UTI. At that time prior cultures were been positive for Proteus sensitive to cephalosporins. He was started on Omnicef which she is still taking. Patient is past only small blood clot here. Bladder scanner unable to measure bladder. Bedside ultrasound by me unable to clearly visualize bladder. Heterogenous pelvic mass possible clot filled bladder. Will obtain CT scan to clarify. Patient noted to have elevated BUN and creatinine here. Unable to have a contrast study. Will obtain a noncontrast study. Regardless given his renal failure he will need admission for further evaluation. I have discussed with Dr. Caballero, hospitalist. She will admit to her service for further evaluation. CT scan results are noted. I have discussed with Dr. Nunez. I have also passed this along to Dr. Caballero. Patient admitted her service for further evaluation. - Data Points Laboratory Results: Laboratory Results 10/28/16 06:09 10/28/16 06:09 10/28/16 10/28/16 10/28/16 06:09 06:09 06:09 WBC RBC Hgb POC Hgb Hct POC Hct MCV MCH MCHC RDW Plt Count MPV Neut % (Auto) Lymph % (Auto) [place] % (Auto) Eos % (Auto) Baso % (Auto) Nucleat RBC Rel Count Absolute Neuts (auto) Absolute Lymphs (auto) Absolute Monos (auto) Absolute Eos (auto) Absolute Basos (auto) Absolute Nucleated RBC Immature Gran % Immature Gran # Platelet Estimate PT Pending INR Pending APTT Pending POC Sodium Sodium 137 mEq/L mEq/L (134-144) POC Potassium Potassium 5.4 mEq/L H mEq/L (3.5-5.2) POC Chloride Chloride 102 mEq/L mEq/L (97-110) Carbon Dioxide 23 mEq/l mEq/l (22-31) Anion Gap 12 mEq/L mEq/L (8-16) POC BUN BUN 107 mg/dL H* mg/dL (7-23) Creatinine 4.1 mg/dL H mg/dL (0.7-1.3) POC Creatinine Estimated GFR 14 Glucose 134 mg/dL H mg/dL (70-100) POC Glucose Calcium 9.7 mg/dL mg/dL (8.5-10.4) Urine Color Urine Appearance Urine pH Ur Specific [place] Urine Protein Urine Ketones Urine Blood Urine Nitrate Urine Bilirubin Urine Urobilinogen Ur Leukocyte Esterase Urine RBC Urine WBC Ur Epithelial Cells Ur Culture Indicated? Urine Glucose Digoxin 1.2 ng/mL ng/mL (0.8-2.0) 10/28/16 10/28/16 10/28/16 06:09 06:02 05:20 WBC 16.44 10^3/uL H 10^3/uL (3.80-9.50) RBC 3.86 10^6/uL L 10^6/uL (4.40-6.38) Hgb 12.1 g/dL L g/dL (13.7-17.5) POC Hgb 13.6 gm/dL L gm/dL (14.5-17.3) Hct 36.8 % L % (40.0-51.0) POC Hct 40 % L % (42.8-50.6) MCV 95.3 fL fL (81.5-99.8) MCH 31.3 pg pg (27.9-34.1) MCHC 32.9 g/dL g/dL (32.4-36.7) RDW 14.6 % % (11.5-15.2) Plt Count 156 10^3/uL 10^3/uL (150-400) MPV 11.6 fL fL (8.7-11.7) Neut % (Auto) Not Reported Lymph % (Auto) Not Reported [place] % (Auto) Not Reported Eos % (Auto) Not Reported Baso % (Auto) Not Reported Nucleat RBC Rel Count 0.0 % % (0.0-0.2) Absolute Neuts (auto) Not Reported Absolute Lymphs (auto) Not Reported Absolute Monos (auto) Not Reported Absolute Eos (auto) Not Reported Absolute Basos (auto) Not Reported Absolute Nucleated RBC 0.00 10^3/uL 10^3/uL (0-0.01) Immature Gran % Not Reported Immature Gran # Not Reported Platelet Estimate Pending PT INR APTT POC Sodium 136 mEq/L mEq/L (134-144) Sodium POC Potassium 5.2 mEq/L H mEq/L (3.3-5.0) Potassium POC Chloride 103 mEq/L mEq/L (96-108) Chloride Carbon Dioxide Anion Gap POC BUN 103 mg/dL H* mg/dL (7-23) BUN Creatinine POC Creatinine 4.4 mg/dL H mg/dL (0.8-1.5) Estimated GFR Glucose POC Glucose 132 mg/dL H mg/dL (70-100) Calcium Urine Color RED Urine Appearance CLOUDY Urine pH TNP Ur Specific [place] TNP Urine Protein TNP Urine Ketones TNP Urine Blood TNP Urine Nitrate TNP Urine Bilirubin TNP Urine Urobilinogen TNP Ur Leukocyte Esterase TNP Urine RBC 50-182 /hpf H /hpf (0-3) Urine WBC 50-182 /hpf H /hpf (0-3) Ur Epithelial Cells Not Reported Ur Culture Indicated? INDICATED H (NI) Urine Glucose TNP Digoxin Point of Care Test Results: 10/28/16 06:02 POC Sodium 136 POC Potassium 5.2 H POC Chloride 103 POC BUN 103 H* POC Creatinine 4.4 H POC Glucose 132 H Departure - Departure Disposition: [facility] Inpatient Acute Clinical Impression: Pelvic mass in male, Renal failure, Hematuria Condition: Fair Referrals: Rod Meza MD [Primary Care Provider] - As per Instructions
[2016-10-28 05:56] LABS: RBC,URINE 50-182 /hpf (0-3); WBC,URINE 50-182 /hpf (0-3)
[2016-10-28 05:57] LABS: COLOR RED
[2016-10-28 06:21] LABS: ADD DIFF? YES; ADD MORPH? NO; ADD SCAN? NO; ATYPICAL LYMPHOCYTE FLAG 0 (0-99); FRAGMENT RBC FLAG 0 (0-99); HEMATOCRIT 36.8 % (40.0-51.0); HEMOGLOBIN 12.1 g/dL (13.7-17.5); LEFT SHIFT FLG 30 (0-99); LIPEMIA HEMOLYSIS FLAG 80 (0-99); MEAN CELL HEMOGLOBIN 31.3 pg (27.9-34.1); MEAN CELL HEMOGLOBIN CONCENTR. 32.9 g/dL (32.4-36.7); MEAN CELL VOLUME 95.3 fL (81.5-99.8); MEAN PLATELET VOLUME 11.6 fL (8.7-11.7); PLATELET CLUMPS FLAG 0 (0-99); PLATELET COUNT 156 10^3/uL (150-400); RED BLOOD CELL COUNT 3.86 10^6/uL (4.40-6.38); RED CELL DISTRIBUTION WIDTH 14.6 % (11.5-15.2)
[2016-10-28 06:25] LABS: ANION GAP 12 mEq/L (8-16); CALCIUM 9.7 mg/dL (8.5-10.4); CARBON DIOXIDE 23 mEq/l (22-31); CHLORIDE 102 mEq/L (97-110); CREATININE 4.1 mg/dL (0.7-1.3); GLOMERULAR FILTRATION RATE 14; GLUCOSE 134 mg/dL (70-100); POTASSIUM 5.4 mEq/L (3.5-5.2); SODIUM 137 mEq/L (134-144)
[2016-10-28] MEDS ORDERED: LIDOCAINE 2% JELLY 20 ML (UROJECT) ONE (06:39)
[2016-10-28] MEDS ORDERED: ONDANSETRON 4 MG/2 ML VIAL IVP PRN (06:47)
[2016-10-28] MEDS ORDERED: ACETAMINOPHEN 325 MG TAB PO PRN (06:47)
[2016-10-28] MEDS ORDERED: ONDANSETRON DISINTEGRATING 4 MG TAB PO PRN (06:47)
[2016-10-28 06:54] LABS: INR 1.27 (0.83-1.16); PLATELET ESTIMATE ADEQUATE (ADEQ); PROTIME(PATIENT) 15.9 SEC (12.0-15.0)
[2016-10-28 06:55] LABS: APTT 32.6 SEC (23.0-38.0)
[2016-10-28 06:57] LABS: ALBUMIN 3.4 g/dL (3.5-5.0); BILIRUBIN,TOTAL 1.1 mg/dL (0.1-1.4); BILIRUBIN-CONJUGATED 0.6 mg/dL (0.0-0.5); BILIRUBIN-UNCONJUGATED 0.5 mg/dL (0.0-1.1); TOTAL PROTEIN 6.2 g/dL (6.3-8.2)
[2016-10-28] MEDS ORDERED: NS 1,000 ML IV SCH (07:00)
--- NOTE | 2016-10-28 07:03 | CPEKG ---
Heart Rate: 69 RR Interval: 870 P-R Interval: 148 QRSD Interval: 120 QT Interval: 432 QTC Interval: 463 P [place]: 0 QRS [place]: -39 T Wave [place]: 69 EKG Severity - ABNORMAL ECG - EKG Impression: VENTRICULAR-PACED COMPLEXES EKG Impression: INCOMPLETE RBBB AND LAFB Electronically Signed By: Sangita Flood 28-Oct-2016 16:25:32
[2016-10-28] MEDS ORDERED: NS 1,000 ML IV ONE (07:09)
[2016-10-28] MEDS ORDERED: ERTAPENEM 1 GM in NS 100 ML IV SCH (07:21)
--- NOTE | 2016-10-28 07:33 | PDGENHP ---
History and Physical - Chief Complaint hematuria - History of Present Illness Patient is an 86 year old male with CAD s/p PCI in May, a fib w/rvr/sss s/ p PPM on AC, CHF (most recent EF normal), metastatic prostate cancer and cognitive decline who presents to the ED with complaint of gross hematuria. For the past month, the patient has been seen several times in the ED for urinary symptoms, mostly increasingly difficult to control incontinence and dysuria. He has been diagnosed with recurrent proteus UTIs, most recently on 10/24 and was started on Cefdinir. Despite compliance with this antibiotic, he continued to have significant suprapubic and urethral pain, especially with attempts at urination. He then was evaluated on 10/[address]ist Dr Pettit and no significant changes were made. He continued to have significant pain and over the course of the night of 10/27-10/28 and then began passing large dark red blood clots passing through his urethra. Given this, he returned to the ED. Throughout the past 1 week, patient has been feeling generally fatigued, having decreased PO intake and has also been having several episodes of diarrhea since starting the antibiotics. Stools are nonbloody, not profuse. On arrival to the ED, he was afebrile and hemodynamically stable. Labs revealed leukocytosis, acute renal failure with BUN/Cr 107/44, K 5.4. CT abd/pelvis was then obtained and revealed a large, complicated mass surrounding the bladder, causing obstruction, with resulting bilateral hydronephrosis, as well as presumed R renal hemorrhage. Olmos was placed and only passed small volume, dark clots of blood. History Information - Allergies/Home Medication List Allergies/Adverse Reactions: No Allergies [NKA] Allergy (Verified 10/28/16 04:57) Home Medications: Atorvastatin Calcium [Lipitor 80 mg] 80 mg PO DAILY@08/08/15 [Last Taken ] Bicalutamide [Casodex (*)] 50 mg PO DAILY@08/08/15 [Last Taken 10/27/16] Cholecalciferol Vit D3 [Vitamin D3 (*)] 2,000 units PO DAILY 08/08/15 [Last Taken 10/14/16] Ezetimibe [Zetia 10 MG (*)] 10 mg PO DAILY@08/08/15 [Last Taken 10/27/16] Furosemide [Lasix 20 MG (*)] 20 mg PO DAILY@08/08/15 [Last Taken 10/27/16] Metoprolol Tartrate [Lopressor 25 mg (*)] 25 mg PO BID 08/08/15 [Last Taken 21:00] [place]-3 Fatty Acids [Fish Oil 1000 mg (*)] 1,000 mg PO DAILY@08/08/15 [Last Taken 3 Days Ago] Tamsulosin HCl [Flomax 0.4 MG (*)] 0.4 mg PO DAILY@08/08/15 [Last Taken 10/27] C/E/Zn/Cu/OM3/DHA/EPA/LUT/ZEAX [Preservision Areds 2 Softgel] 1 each PO DAILY [Last Taken 10/15/16] Acetaminophen [Tylenol ES 500 mg (*)] 500 - 1,000 mg PO DAILY PRN 10/28/16 [ Last Taken 10/28/16 02:00] Clopidogrel Bisulfate [Plavix (*)] 75 mg PO DAILY@10/28/16 [Last Taken ] Clotrimazole 1% [Lotrimin 1%] 1 aaron TP DAILY PRN 10/28/16 [Last Taken Unknown] Donepezil HCl [Aricept 5 MG (*)] 5 mg PO DAILY@10/28/16 [Last Taken 10/27/16] Edoxaban Tosylate [Savaysa] 30 mg PO DAILY@10/28/16 [Last Taken 10/27/16] Herbals/Supplements -Info Only 1 ea PO DAILY 10/28/16 [Last Taken Unknown] Meth/Meblue/Sod Phos/Psal/Hyos [Uribel Capsule] 1 each PO QID 10/28/16 [Last Taken Unknown] predniSONE 20 mg PO TID 10/28/16 [Last Taken 10/27/16 21:00] I have personally reviewed and updated: family history, medical history, social history, surgical history - Past Medical History atrial fibrillation, coronary artery disease, cancer, CHF, dementia, DVT, GI bleed, hearing deficit, hypertension, hyperlipidemia, pulmonary embolism Additional medical history: CKD--baseline creatinine 1.7-2. KATHERINE--nocturnal oxygen. spinal stenosis. hypothyroid - Surgical History Reports: cancer surgery (RCC resection), cholecystectomy, pacemaker/AICD, spinal surgery, coronary stent Additional surgical history: knee surgery. hip surgery. tonsillectomy - Family History Positive for: cancer, stroke - Social History Smoking Status: Never smoked Alcohol Use: None Drug Use: None Additional social history: , lives independently, retired professor, originally from [place] Review of Systems ROS: 10pt was reviewed & negative except for what was stated in HPI & below Physical Exam Temp Pulse Resp BP Pulse Ox 36.4 C 67 16 140/81 H 97 10/28/16 04:58 10/28/16 06:31 10/28/16 06:31 10/28/16 06:31 10/28/16 06:31 Constitutional: appears nourished, uncomfortable Eyes: PERRL, anicteric sclera, EOMI Ears, Nose, Mouth, Throat: moist mucous membranes, hearing normal, ears appear normal, no oral mucosal ulcers Cardiovascular: regular rate and rhythym, no murmur, rub, or gallop, edema ( bilateral lower extremity edema), No JVD Peripheral Pulses: 2+: dorsalis-pedis (R), dorsalis-pedis (L) Respiratory: no respiratory distress, no rales or rhonchi, clear to auscultation Gastrointestinal: normoactive bowel sounds, other (firm mass palpable in suprapubic area, very tender to palpation; diffuse mild tenderness) Genitourinary: no bladder fullness, no bladder tenderness Skin: warm, normal color, no rashes or abrasions, no fluctuance, no induration, No mottled Musculoskeletal: full muscle strength, no muscle tenderness, normal joint ROM, no joint effusions Neurologic: AAOx3, sensation intact bilaterally, CN II-XII Intact, No weakness, No numbness Psychiatric: interacting appropriately, not anxious, not encephalopathic, thought process linear Lab Data & Imaging Review 10/28/16 06:09 10/28/16 06:09 WBC 16.44 10^3/uL (3.80-9.50) H 10/28/16 06:09 RBC 3.86 10^6/uL (4.40-6.38) L 10/28/16 06:09 Hgb 12.1 g/dL (13.7-17.5) L 10/28/16 06:09 POC Hgb 13.6 gm/dL (14.5-17.3) L 10/28/16 06:02 Hct 36.8 % (40.0-51.0) L 10/28/16 06:09 POC Hct 40 % (42.8-50.6) L 10/28/16 06:02 MCV 95.3 fL (81.5-99.8) 10/28/16 06:09 MCH 31.3 pg (27.9-34.1) 10/28/16 06:09 MCHC 32.9 g/dL (32.4-36.7) 10/28/16 06:09 RDW 14.6 % (11.5-15.2) 10/28/16 06:09 Plt Count 156 10^3/uL (150-400) 10/28/16 06:09 MPV 11.6 fL (8.7-11.7) 10/28/16 06:09 Neut % (Auto) Not Reported 10/28/16 06:09 Lymph % (Auto) Not Reported 10/28/16 06:09 [place] % (Auto) Not Reported 10/28/16 06:09 Eos % (Auto) Not Reported 10/28/16 06:09 Baso % (Auto) Not Reported 10/28/16 06:09 Nucleat RBC Rel Count 0.0 % (0.0-0.2) 10/28/16 06:09 Absolute Neuts (auto) Not Reported 10/28/16 06:09 Absolute Lymphs (auto) Not Reported 10/28/16 06:09 Absolute Monos (auto) Not Reported 10/28/16 06:09 Absolute Eos (auto) Not Reported 10/28/16 06:09 Absolute Basos (auto) Not Reported 10/28/16 06:09 Absolute Nucleated RBC 0.00 10^3/uL (0-0.01) 10/28/16 06:09 Immature Gran % Not Reported 10/28/16 06:09 Seg Neutrophils % 84 % 10/28/16 06:09 Lymphocytes % 7 % 10/28/16 06:09 Monocytes % 7 % 10/28/16 06:09 Metamyelocytes % 1 % 10/28/16 06:09 Myelocytes % 1 % 10/28/16 06:09 Immature Gran # Not Reported 10/28/16 06:09 Absolute Seg Neuts 13.81 10^/uL (1.70-6.50) H 10/28/16 06:09 Absolute Lymphocytes 1.15 10^3/uL (1.00-3.00) 10/28/16 06:09 Absolute Monocytes 1.15 10^3/uL (0.30-0.80) H 10/28/16 06:09 Absolute Metamyelocyte 0.16 10^3/mL (0.00-0.00) H 10/28/16 06:09 Absolute Myelocytes 0.16 10^3/mL (0.00-0.00) H 10/28/16 06:09 RBC/WBC/PLT Morphology NORMAL (NORMAL) 10/28/16 06:09 Platelet Estimate ADEQUATE (ADEQ) 10/28/16 06:09 PT 15.9 SEC (12.0-15.0) H 10/28/16 06:09 INR 1.27 (0.83-1.16) H 10/28/16 06:09 APTT 32.6 SEC (23.0-38.0) 10/28/16 06:09 POC Sodium 136 mEq/L (134-144) 10/28/16 06:02 Sodium 137 mEq/L (134-144) 10/28/16 06:09 POC Potassium 5.2 mEq/L (3.3-5.0) H 10/28/16 06:02 Potassium 5.4 mEq/L (3.5-5.2) H 10/28/16 06:09 POC Chloride 103 mEq/L (96-108) 10/28/16 06:02 Chloride 102 mEq/L (97-110) 10/28/16 06:09 Carbon Dioxide 23 mEq/l (22-31) 10/28/16 06:09 Anion Gap 12 mEq/L (8-16) 10/28/16 06:09 POC BUN 103 mg/dL (7-23) H* 10/28/16 06:02 BUN 107 mg/dL (7-23) H* 10/28/16 06:09 Creatinine 4.1 mg/dL (0.7-1.3) H 10/28/16 06:09 POC Creatinine 4.4 mg/dL (0.8-1.5) H 10/28/16 06:02 Estimated GFR 14 10/28/16 06:09 Glucose 134 mg/dL (70-100) H 10/28/16 06:09 POC Glucose 132 mg/dL (70-100) H 10/28/16 06:02 Calcium 9.7 mg/dL (8.5-10.4) 10/28/16 06:09 Total Bilirubin 1.1 mg/dL (0.1-1.4) 10/28/16 06:09 Conjugated Bilirubin 0.6 mg/dL (0.0-0.5) H 10/28/16 06:09 Unconjugated Bilirubin 0.5 mg/dL (0.0-1.1) 10/28/16 06:09 AST 23 IU/L (17-59) 10/28/16 06:09 ALT 31 IU/L (21-72) 10/28/16 06:09 Alkaline Phosphatase 53 IU/L (38-126) 10/28/16 06:09 Total Protein 6.2 g/dL (6.3-8.2) L 10/28/16 06:09 Albumin 3.4 g/dL (3.5-5.0) L 10/28/16 06:09 Lipase 894.0 IU/L (23-300) H 10/28/16 06:09 Urine Color RED 10/28/16 05:20 Urine Appearance CLOUDY 10/28/16 05:20 Urine pH TNP 10/28/16 05:20 Ur Specific [place] TNP 10/28/16 05:20 Urine Protein TNP 10/28/16 05:20 Urine Ketones TNP 10/28/16 05:20 Urine Blood TNP 10/28/16 05:20 Urine Nitrate TNP 10/28/16 05:20 Urine Bilirubin TNP 10/28/16 05:20 Urine Urobilinogen TNP 10/28/16 05:20 Ur Leukocyte Esterase TNP 10/28/16 05:20 Urine RBC 50-182 /hpf (0-3) H 10/28/16 05:20 Urine WBC 50-182 /hpf (0-3) H 10/28/16 05:20 Ur Epithelial Cells Not Reported 10/28/16 05:20 Ur Culture Indicated? INDICATED (NI) H 10/28/16 05:20 Urine Glucose TNP 10/28/16 05:20 Digoxin 1.2 ng/mL (0.8-2.0) 10/28/16 06:09 Visualized and Interpreted imaging results: Yes Interpretation: CT abd/pelvis: renal obstruction bilat with hemorrhage on the right, soft tissue mass pelvis with hemorrhage, can't see urinary bladder, pneumobilia, right adrenal mass Visualized and Interpreted EKG results: Yes EKG additional interpertation: paced rhythm Assessment & Plan Assessment: Patient is an 86 year old male with an extensive cardiac history, on systemic AC, h/o metastatic prostate cancer and recent recurrent UTIs who presents with hematuria, significant suprapubic pain. ED evaluation reveals acute renal failure, with imaging revealing new large heterogenous mass engulfing the bladder causing significant obstruction. Plan: # acute renal failure, hematuria Most likely due to obstruction from this newly discovered pelvic mass. CT imaging shows bilateral hydronephrosis. Olmos has been placed, but still no significant Urology has been consulted and evaluate for need for nephrostomy, bladder irrigation. Potassium is not markedly elevated, EKG does not show electrolyte abnormalities, will continue to follow BMP and electrolytes closely. # new pelvic mass CT shows this new heterogenous mass. Urology will assess imaging and decide how to proceed with diagnosing this mass. # hematuria Patient passing dark clots of blood, CT shows R renal hemorrhage. Remains hemodynamically stable. Will follow CBC, coags closely, hold systemic anticoagulation. # afib Will hold systemic anticoagulation and continue other rate controlling meds. Digoxin level is stable despite the renal failure, will cont to follow this. # chf Last EF was noted to be 75%. Patient appears slightly hypovolemic on exam, although with chronic lower extremity edema. Will continue home med regimen. # CAD No cardiac complaints today, EKG without ischemic changes. # dispo: admit to inpatient service for > 2 [place] stay # gen: NPO DVT ppx: SCD Full code, as discussed with patient and his on admission today
[2016-10-28] MEDS ORDERED: oxyCODONE IR 5 MG TAB ONE (07:47)
[2016-10-28] MEDS: oxyCODONE IR 5 MG TAB PO PRN ×2 (07:55→22:16)
[2016-10-28] MEDS ORDERED: ERTAPENEM 1 GM in NS 100 ML IV ONE (08:00)
[2016-10-28] MEDS: HYDROmorphONE/DILAUDID 1 MG/ML SYR IVP PRN ×3 (09:28→20:29)
[2016-10-28] MEDS ORDERED: ALTEPLASE 2 MG VIAL IVP PRN (11:56)
[2016-10-28 12:46] LABS: HEMOGLOBIN 11.6 g/dL (13.7-17.5); MEAN CELL HEMOGLOBIN 32.1 pg (27.9-34.1); MEAN CELL HEMOGLOBIN CONCENTR. 33.1 g/dL (32.4-36.7); RED BLOOD CELL COUNT 3.61 10^6/uL (4.40-6.38); RED CELL DISTRIBUTION WIDTH 14.6 % (11.5-15.2)
[2016-10-28 13:17] LABS: ANION GAP 11 mEq/L (8-16); CALCIUM 9.2 mg/dL (8.5-10.4); CARBON DIOXIDE 20 mEq/l (22-31); CHLORIDE 105 mEq/L (97-110); CREATININE 4.3 mg/dL (0.7-1.3); GLOMERULAR FILTRATION RATE 13; GLUCOSE 153 mg/dL (70-100); POTASSIUM 4.9 mEq/L (3.5-5.2); SODIUM 136 mEq/L (134-144)
[2016-10-28] MEDS: Meth/Meblue/Sod Phos/Psal/Hyos [Uribel Capsule] 1 EACH PO SCH ×3 (14:08→22:16)
[2016-10-28] MEDS: predniSONE 20 MG TAB PO SCH ×2 (15:36→22:16)
--- NOTE | 2016-10-28 16:33 | HOSPPROG ---
Hospitalist Progress Note Assessment/Plan: * Bladder/pelvic mass - ? recurrent prostate cancer -needs eventual biopsy * ARF due to obstruction - bilateral severe hydro due to mass -needs nephrostomy tubes * CKD - baseline creatinine 2.0 * Hematuria - bleed from mass -minimal output with CBI * UTI -IV Invanz * CAD s/p stent LM/LAD May 19 -holding Plavix - resume as soon as bleeding controlled * Afib/PCM -holding Savaysa due to acute bleed -holding digoxin due to renal failure -continue metoprolol * Dementia -aricept * Metastatic prostate cancer - Casodex * Chronic prednisone - unclear indication Subjective: lots of pelvic pain Objective: Vital Signs Temp Pulse Resp BP Pulse Ox 36.3 C 69 18 136/70 H 91 L 10/28/16 12:10 10/28/16 12:10 10/28/16 08:32 10/28/16 12:10 10/28/16 12:10 Laboratory Results 10/28/16 12:35 10/28/16 12:35 10/27/16 10/28/16 10/29/16 05:59 05:59 05:59 Intake Total 1100 Balance 1100 PT 15.9 SEC (12.0-15.0) H 10/28/16 06:09 INR 1.27 (0.83-1.16) H 10/28/16 06:[address] reviewed - complex pelvic mass with bilateral hydro - Physical Exam Constitutional: no apparent distress, appears nourished, not in pain Cardiovascular: regular rate and rhythym, no murmur, rub, or gallop Respiratory: no respiratory distress, no rales or rhonchi, clear to auscultation Gastrointestinal: tenderness (suprapubic), No ascites, No hepatosplenomegally, No guarding, No rebound Skin: no rashes or abrasions, no fluctuance, no induration Neurologic: AAOx3, sensation intact bilaterally Psychiatric: interacting appropriately, not anxious, not encephalopathic, thought process linear ICD10 Worksheet Patient Problems: Problems Problem Status Onset Hematuria Acute Pelvic mass in male Acute Renal failure Acute Atrial fibrillation Acute Bronchitis Acute Congestive heart failure Acute DVT (deep venous thrombosis) Acute Generalized weakness Acute UTI (urinary tract infection) Acute Urinary tract infection Acute Weakness Acute
[2016-10-28] MEDS ORDERED: fentaNYL 100 MCG/2 ML INJ ONE (17:20)
[2016-10-28] MEDS ORDERED: PHENYLEPHRINE HCL 100 MCG/ML SYR ONE (17:21)
[2016-10-28] MEDS ORDERED: PROPOFOL/EMULSION 500 MG/50 ML BOTTLE IV ONE (17:21)
[2016-10-28] MEDS ORDERED: epHEDrine SULFATE 10 MG/ML SYR ONE (17:21)
[2016-10-28] MEDS ORDERED: MIDAZOLAM 2 MG/2 ML VIAL ONE (17:21)
--- NOTE | 2016-10-28 18:57 | POSTOPPROG ---
Post Op Note Date of Operation: 10/28/16 Surgeon: Carrie Barone Anesthesiologist: Dr. Knapp Anesthesia: IV Sedation Pre-op Diagnosis: Pelvic tumor Post-op Diagnosis: same; moderate bilateral renal obstruction Indication: complete bilateral renal obstruction Procedure: bilateral nephrostomy placement Findings: complete bilateral obstruction; bloody urine Inf/Abcess present in the surg proc area at time of surgery?: No Depth: Superfical (Skin SQ) EBL: Minimal Complications: None Drains: Nephrostomy (bilateral 8Fr)
[2016-10-28] MEDS ORDERED: LIDOCAINE 1% 30 ML SDV ONE (19:48)
[2016-10-28] MEDS ORDERED: IOPAMIDOL (ISOVUE-300) 100 ML BTL IV ONE (19:49)
[2016-10-28] MEDS: EZETIMIBE 10 MG TAB PO SCH (20:18)
[2016-10-28] MEDS: ATORVASTATIN CALCIUM 40 MG TAB PO SCH (20:18)
[2016-10-28] MEDS: METOPROLOL TARTRATE 25 MG TAB PO SCH (22:15)
[2016-10-28] MEDS: BICALUTAMIDE 50 MG TAB PO SCH (22:38)
[2016-10-29] MEDS: HYDROmorphONE/DILAUDID 1 MG/ML SYR IVP PRN ×2 (04:19→15:34)
[2016-10-29 04:54] LABS: % IMMATURE GRANULYOCYTES 1.8 % (0.0-1.1); ADD DIFF? NO; ADD MORPH? NO; ADD SCAN? NO; ATYPICAL LYMPHOCYTE FLAG 0 (0-99); FRAGMENT RBC FLAG 0 (0-99); HEMATOCRIT 32.3 % (40.0-51.0); HEMOGLOBIN 10.6 g/dL (13.7-17.5); LEFT SHIFT FLG 20 (0-99); LIPEMIA HEMOLYSIS FLAG 80 (0-99); MEAN CELL HEMOGLOBIN 31.5 pg (27.9-34.1); MEAN CELL HEMOGLOBIN CONCENTR. 32.8 g/dL (32.4-36.7); MEAN CELL VOLUME 96.1 fL (81.5-99.8); MEAN PLATELET VOLUME 11.6 fL (8.7-11.7); PLATELET CLUMPS FLAG 0 (0-99); PLATELET COUNT 155 10^3/uL (150-400); RED BLOOD CELL COUNT 3.36 10^6/uL (4.40-6.38); RED CELL DISTRIBUTION WIDTH 14.6 % (11.5-15.2)
[2016-10-29 05:18] LABS: POTASSIUM 6.1 mEq/L (3.5-5.2)
[2016-10-29 05:19] LABS: ANION GAP 7 mEq/L (8-16); CALCIUM 9.1 mg/dL (8.5-10.4); CARBON DIOXIDE 23 mEq/l (22-31); CHLORIDE 106 mEq/L (97-110); CREATININE 4.1 mg/dL (0.7-1.3); GLOMERULAR FILTRATION RATE 14; GLUCOSE 141 mg/dL (70-100); SODIUM 136 mEq/L (134-144)
[2016-10-29] MEDS: Meth/Meblue/Sod Phos/Psal/Hyos [Uribel Capsule] 1 EACH PO SCH ×4 (06:13→22:54)
[2016-10-29] MEDS: predniSONE 20 MG TAB PO SCH ×3 (08:55→22:54)
[2016-10-29] MEDS: PRESERVISION AREDS2 FORMULA EYE VIT 1 EACH PO SCH (08:55)
[2016-10-29] MEDS: TAMSULOSIN HCL 0.4 MG CAP PO SCH (08:55)
[2016-10-29] MEDS: DONEPEZIL HCL 5 MG TAB PO SCH (08:55)
[2016-10-29] MEDS: METOPROLOL TARTRATE 25 MG TAB PO SCH ×2 (08:55→22:54)
[2016-10-29] MEDS ORDERED: SODIUM POLY SULF 15 GM/60 ML BOTTLE PO ONE ×3 (09:15→19:00)
[2016-10-29] MEDS: ERTAPENEM 0.5 GM in NS 100 ML IV SCH (09:57)
[2016-10-29 11:21] LABS: ANION GAP 11 mEq/L (8-16); CALCIUM 9.1 mg/dL (8.5-10.4); CARBON DIOXIDE 23 mEq/l (22-31); CHLORIDE 106 mEq/L (97-110); CREATININE 4.1 mg/dL (0.7-1.3); GLOMERULAR FILTRATION RATE 14; GLUCOSE 124 mg/dL (70-100); POTASSIUM 6.2 mEq/L (3.5-5.2); SODIUM 140 mEq/L (134-144)
--- NOTE | 2016-10-29 13:12 | HOSPPROG ---
Hospitalist Progress Note Assessment/Plan: * Bladder/pelvic mass -CT guided biopsy - d/w Dr. Carrasco * ARF due to obstruction - bilateral severe hydro due to mass -s/p nephrostomy tubes * CKD - baseline creatinine 2.0 * Hyperkalemia -s/p Kayexalate - recheck K+ * Pneumobilia -check abd US * UTI -IV Invanz * CAD s/p stent LM/LAD May 19 -holding Plavix - resume when bleeding controlled * Afib/PCM -holding Savaysa due to acute bleed -holding digoxin due to renal failure -continue metoprolol * Dementia -aricept * Metastatic prostate cancer - Casodex * Chronic prednisone - unclear indication Subjective: Urine output from nephrostomies blood tinged Objective: Vital Signs Temp Pulse Resp BP Pulse Ox 36.6 C 77 16 122/72 H 96 10/29/16 12:49 10/29/16 12:49 10/29/16 12:49 10/29/16 12:49 10/29/16 12:49 Microbiology 10/28/16 18:15 Gram Stain - Final Other - Other 10/28/16 18:15 Gram Stain - Final Other - Syringe Laboratory Results 10/29/16 04:30 10/29/16 09:50 10/28/16 10/29/16 10/30/16 05:59 05:59 05:59 Intake Total 1450 Output Total 860 600 Balance 590 -600 PT 15.9 SEC (12.0-15.0) H 10/28/16 06:09 INR 1.27 (0.83-1.16) H 10/28/16 06:09 d/w Dr. Pettit - prognosis poor, agrees with biopsy via radiology - Physical Exam Constitutional: no apparent distress, appears nourished, not in pain Ears, Nose, Mouth, Throat: hard of hearing, No hearing normal, No oral thrush Cardiovascular: regular rate and rhythym, no murmur, rub, or gallop Respiratory: no respiratory distress, no rales or rhonchi, clear to auscultation Gastrointestinal: normoactive bowel sounds, soft, non-tender abdomen, no palpable masses Skin: no rashes or abrasions, no fluctuance, no induration Neurologic: No AAOx3 Psychiatric: flat affect, poor insight, poor judgement, poor memory, No interacting appropriately, No agitated ICD10 Worksheet Patient Problems: Problems Problem Status Onset Hematuria Acute Pelvic mass in male Acute Renal failure Acute Atrial fibrillation Acute Bronchitis Acute Congestive heart failure Acute DVT (deep venous thrombosis) Acute Generalized weakness Acute UTI (urinary tract infection) Acute Urinary tract infection Acute Weakness Acute
[2016-10-29 15:11] LABS: ANION GAP 8 mEq/L (8-16); CALCIUM 9.1 mg/dL (8.5-10.4); CARBON DIOXIDE 22 mEq/l (22-31); CHLORIDE 106 mEq/L (97-110); CREATININE 3.9 mg/dL (0.7-1.3); GLOMERULAR FILTRATION RATE 15; GLUCOSE 120 mg/dL (70-100); POTASSIUM 6.1 mEq/L (3.5-5.2); SODIUM 136 mEq/L (134-144)
[2016-10-29] MEDS ORDERED: CALCIUM GLUCONATE 50 ML IV ONE (15:47)
[2016-10-29] MEDS ORDERED: SODIUM BICARBONATE 50 MEQ/50 ML SYR IVP ONE (15:50)
[2016-10-29] MEDS ORDERED: FLUMAZENIL 0.5 MG/5 ML MDV IVP ONE (16:03)
[2016-10-29] MEDS ORDERED: MIDAZOLAM 2 MG/2 ML VIAL ONE (16:03)
[2016-10-29] MEDS ORDERED: NALOXONE HCL 0.4 MG/ML INJ ONE (16:03)
[2016-10-29] MEDS ORDERED: fentaNYL 100 MCG/2 ML INJ ONE (16:04)
--- NOTE | 2016-10-29 17:37 | GCON ---
[f rep st] CONSULTATION MEDICAL ONCOLOGY FOLLOWUP CONSULTATION REFERRING PHYSICIAN: Aby Aguillon MD REASON FOR CONSULTATION: Ongoing management of prostate cancer as well as further diagnostic workup of a large pelvic mass. RECOMMENDATIONS: 1. Agree with biopsies you are doing. 2. Agree with bilateral nephrostomy tubes. 3. Further recommendations for therapy will depend on the biopsy results. The real question will b e whether this is related to prostate cancer or whether this is a new cancer such as transitional ce ll carcinoma. Recommendations will need to be made in light of the patient's underlying advanced ag e and dementia. ASSESSMENT: This 86-year-old white male, who is followed by my partner, Dr. Enrique Mckay, for pros pastrana cancer which was diagnosed in 2004, now presents to [facility] in renal failure with bilateral hydronephrosis and a large pelvic mass. The patient has been having some blood in h is urine recently. He has also been just not doing well in general. The history is obtained primar jez from his and son. Because of the hematuria and the renal failure, he had a CT of his abdom en and pelvis performed. This revealed a large mass in his pelvis. The seed implants from his prev ious treatment for prostate cancer can be seen on the scan. The patient had been followed on Casodex alone. He was last seen in the office on August 09, 2016. Just prior to that visit, his PSA was 0.56. Interestingly, currently his PSA is up slightly but o nly to 1.94. I think the most likely differential diagnosis for the pelvic mass would include a recurrence of his prostate cancer that just happens to be in the 5% that do not make very much PSA versus a new cance r such as a transitional cell carcinoma of his bladder versus some other low frequency but possible malignancy such as sarcoma or a small-cell of the prostate. The biopsy that is planned will give us additional information on this. After a diagnosis is made, we will need to have a thoughtful discussion about whether additional the rapy would be appropriate. In large part this will depend upon his functional status, his wishes, t he wishes of his family and the estimated success of therapy as far as palliation is concerned as we ll as the expected side effect profile. This will be an ongoing dialogue. HISTORY OF PRESENT ILLNESS: Please see Assessment. PAST MEDICAL HISTORY: Remarkable for dementia. FAMILY HISTORY: Negative for prostate cancer. SOCIAL HISTORY: The patient is . He is accompanied by his . He is also accompanied by his son. REVIEW OF SYSTEMS: Difficult to obtain because of his dementia. His does say that he has had hematuria, however. In general, he has also had increasing weakness. PHYSICAL EXAMINATION: Reveals a pale white male, who is not able to answer questions. LABORATORY EXAM: Shows potassium is 6.2, his BUN is 100, his creatinine is 4.1, and his PSA is 1.94 . His CBC shows a white count of 16,840 with a hemoglobin of 10.6 and a platelet count of 155,000. Thank you very much for allowing us to participate in this pleasant gentleman's ongoing oncologic ca re. We look forward to assisting with his management going forward and as an outpatient. /[id number]/MODL
[2016-10-29] MEDS: ATORVASTATIN CALCIUM 40 MG TAB PO SCH (18:58)
[2016-10-29] MEDS: EZETIMIBE 10 MG TAB PO SCH (18:58)
[2016-10-29] MEDS: BICALUTAMIDE 50 MG TAB PO SCH (18:59)
[2016-10-29 22:48] LABS: ANION GAP 8 mEq/L (8-16); CALCIUM 9.1 mg/dL (8.5-10.4); CARBON DIOXIDE 26 mEq/l (22-31); CHLORIDE 109 mEq/L (97-110); CREATININE 3.8 mg/dL (0.7-1.3); GLOMERULAR FILTRATION RATE 15; GLUCOSE 141 mg/dL (70-100); POTASSIUM 5.4 mEq/L (3.5-5.2); SODIUM 143 mEq/L (134-144)
[2016-10-29] MEDS: oxyCODONE IR 5 MG TAB PO PRN (23:01)
[2016-10-30] MEDS: HYDROmorphONE/DILAUDID 1 MG/ML SYR IVP PRN (01:44)
[2016-10-30] MEDS: Meth/Meblue/Sod Phos/Psal/Hyos [Uribel Capsule] 1 EACH PO SCH ×4 (05:16→20:29)
[2016-10-30 05:29] LABS: ANION GAP 10 mEq/L (8-16); CALCIUM 8.7 mg/dL (8.5-10.4); CARBON DIOXIDE 24 mEq/l (22-31); CHLORIDE 110 mEq/L (97-110); CREATININE 3.3 mg/dL (0.7-1.3); GLOMERULAR FILTRATION RATE 18; GLUCOSE 117 mg/dL (70-100); POTASSIUM 4.8 mEq/L (3.5-5.2); SODIUM 144 mEq/L (134-144)
[2016-10-30 05:41] LABS: % IMMATURE GRANULYOCYTES 1.6 % (0.0-1.1); ABSOLUTE IMMATURE GRANULOCYTES 0.23 10^3/uL (0.00-0.10); ADD DIFF? NO; ADD MORPH? NO; ADD SCAN? NO; ATYPICAL LYMPHOCYTE FLAG 0 (0-99); FRAGMENT RBC FLAG 0 (0-99); HEMATOCRIT 30.2 % (40.0-51.0); HEMOGLOBIN 9.7 g/dL (13.7-17.5); LEFT SHIFT FLG 20 (0-99); LIPEMIA HEMOLYSIS FLAG 80 (0-99); MEAN CELL HEMOGLOBIN 31.6 pg (27.9-34.1); MEAN CELL HEMOGLOBIN CONCENTR. 32.1 g/dL (32.4-36.7); MEAN CELL VOLUME 98.4 fL (81.5-99.8); MEAN PLATELET VOLUME 11.9 fL (8.7-11.7); PLATELET CLUMPS FLAG 30 (0-99); PLATELET COUNT 125 10^3/uL (150-400); RED BLOOD CELL COUNT 3.07 10^6/uL (4.40-6.38)
[2016-10-30] MEDS: oxyCODONE IR 5 MG TAB PO PRN ×3 (08:09→22:49)
[2016-10-30] MEDS: DONEPEZIL HCL 5 MG TAB PO SCH (08:14)
[2016-10-30] MEDS: predniSONE 20 MG TAB PO SCH (08:14)
[2016-10-30] MEDS: METOPROLOL TARTRATE 25 MG TAB PO SCH ×2 (08:17→20:28)
[2016-10-30] MEDS: PRESERVISION AREDS2 FORMULA EYE VIT 1 EACH PO SCH (08:21)
[2016-10-30] MEDS: TAMSULOSIN HCL 0.4 MG CAP PO SCH (08:21)
[2016-10-30] MEDS: ERTAPENEM 0.5 GM in NS 100 ML IV SCH (09:40)
[2016-10-30] MEDS: CLOPIDOGREL BISULFATE 75 MG TAB PO SCH (12:05)
[2016-10-30] MEDS ORDERED: POLYETHYLENE GLYCOL 3350 17 GM PKT PO PRN (12:08)
[2016-10-30] MEDS ORDERED: MAGNESIUM HYDROXIDE 30 ML UDCUP PO PRN (12:08)
[2016-10-30] MEDS ORDERED: BISACODYL 10 MG SUPP PR PRN (12:08)
[2016-10-30] MEDS ORDERED: LACTULOSE 20 GM/30 ML UDCUP PO PRN (12:08)
--- NOTE | 2016-10-30 14:38 | SOAPPROG ---
SOAP Progress Note Assessment/Plan: Assessment: 1. History prostate cancer 2. Dementia 3. pelvic mass, renal failure, improving post nephrostomies Plan:follow renal function, await result of biopsy, could try full dose ADT, discussed with and son 10/30/16 14:35 Subjective: Feeling better Objective: Vital Signs Temp Pulse Resp BP Pulse Ox 97.5 F 84 18 125/68 H 93 10/30/16 12:19 10/30/16 12:19 10/30/16 12:19 10/30/16 12:19 10/30/16 12:19 Microbiology 10/28/16 18:15 Gram Stain - Final Other - Other 10/28/16 18:15 Gram Stain - Final Other - Syringe Laboratory Results 10/30/16 05:30 10/30/16 05:00 10/29/16 10/30/16 10/31/16 05:59 05:59 05:59 Intake Total 1450 800 Output Total 860 1825 Balance 590 -1025 PT 15.9 SEC (12.0-15.0) H 10/28/16 06:09 INR 1.27 (0.83-1.16) H 10/28/16 06:09 ICD10 Worksheet Patient Problems: Problems Problem Status Onset Hematuria Acute Pelvic mass in male Acute Renal failure Acute Atrial fibrillation Acute Bronchitis Acute Congestive heart failure Acute DVT (deep venous thrombosis) Acute Generalized weakness Acute UTI (urinary tract infection) Acute Urinary tract infection Acute Weakness Acute
--- NOTE | 2016-10-30 16:04 | HOSPPROG ---
Hospitalist Progress Note Assessment/Plan: * Bladder/pelvic mass -biopsy pending * Bilateral hydro due to mass- complete obstruction -s/p nephrostomy tubes * Acute on CKD - baseline creatinine 2.0 -improving * Hyperkalemia -s/p Kayexalate - resolved * Pneumobilia - likely chronic * UTI -IV Invanz * CAD s/p stent LM/LAD May 19 -no active bleeding - resume Plavix * Afib/PCM -holding Savaysa due to acute bleed -holding digoxin due to renal failure -continue metoprolol * Dementia -aricept * Metastatic prostate cancer - Casodex * Vision change - s/p intra-ocular steroid followed by PO -per neuro/optho - wean steroids to off COR STATUS - patient has longstanding wish for shock x 1 then full DNR if not immediately resuscitated Subjective: No new complaints. Objective: Vital Signs Temp Pulse Resp BP Pulse Ox 36.4 C 84 18 125/68 H 93 10/30/16 12:19 10/30/16 12:19 10/30/16 12:19 10/30/16 12:19 10/30/16 12:19 Microbiology 10/28/16 18:15 Gram Stain - Final Other - Other 10/28/16 18:15 Gram Stain - Final Other - Syringe Laboratory Results 10/30/16 05:30 10/30/16 05:00 10/29/16 10/30/16 10/31/16 05:59 05:59 05:59 Intake Total 1450 800 100 Output Total 860 1825 675 Balance 590 -1025 -575 PT 15.9 SEC (12.0-15.0) H 10/28/16 06:09 INR 1.27 (0.83-1.16) H 10/28/16 06:09 - Physical Exam Constitutional: no apparent distress, appears nourished, not in pain Ears, Nose, Mouth, Throat: hard of hearing Cardiovascular: regular rate and rhythym, no murmur, rub, or gallop Respiratory: no respiratory distress, no rales or rhonchi, clear to auscultation Gastrointestinal: normoactive bowel sounds, soft, non-tender abdomen, no palpable masses Skin: no rashes or abrasions, no fluctuance, no induration Neurologic: No AAOx3 Psychiatric: thought process linear, flat affect, poor insight, poor judgement, poor memory, No interacting appropriately, No encephalopathic, No agitated ICD10 Worksheet Patient Problems: Problems Problem Status Onset Hematuria Acute Pelvic mass in male Acute Renal failure Acute Atrial fibrillation Acute Bronchitis Acute Congestive heart failure Acute DVT (deep venous thrombosis) Acute Generalized weakness Acute UTI (urinary tract infection) Acute Urinary tract infection Acute Weakness Acute
[2016-10-30] MEDS: SENNOSIDES/DOCUSATE SODIUM TAB PO SCH ×2 (17:14→20:28)
[2016-10-30] MEDS: BICALUTAMIDE 50 MG TAB PO SCH (20:27)
[2016-10-30] MEDS: ATORVASTATIN CALCIUM 40 MG TAB PO SCH (20:27)
[2016-10-30] MEDS: EZETIMIBE 10 MG TAB PO SCH (20:28)
[2016-10-31] MEDS: Meth/Meblue/Sod Phos/Psal/Hyos [Uribel Capsule] 1 EACH PO SCH ×4 (05:05→20:41)
[2016-10-31 05:24] LABS: % IMMATURE GRANULYOCYTES 1.5 % (0.0-1.1); ABSOLUTE IMMATURE GRANULOCYTES 0.27 10^3/uL (0.00-0.10); ADD DIFF? NO; ADD MORPH? NO; ADD SCAN? NO; ATYPICAL LYMPHOCYTE FLAG 0 (0-99); FRAGMENT RBC FLAG 0 (0-99); HEMATOCRIT 29.6 % (40.0-51.0); HEMOGLOBIN 9.5 g/dL (13.7-17.5); LEFT SHIFT FLG 40 (0-99); LIPEMIA HEMOLYSIS FLAG 80 (0-99); MEAN CELL HEMOGLOBIN 31.5 pg (27.9-34.1); MEAN CELL HEMOGLOBIN CONCENTR. 32.1 g/dL (32.4-36.7); MEAN PLATELET VOLUME 11.5 fL (8.7-11.7); PLATELET CLUMPS FLAG 0 (0-99); PLATELET COUNT 134 10^3/uL (150-400); RED BLOOD CELL COUNT 3.02 10^6/uL (4.40-6.38); RED CELL DISTRIBUTION WIDTH 15.2 % (11.5-15.2)
[2016-10-31 05:44] LABS: ANION GAP 9 mEq/L (8-16); CALCIUM 8.7 mg/dL (8.5-10.4); CARBON DIOXIDE 27 mEq/l (22-31); CHLORIDE 110 mEq/L (97-110); CREATININE 2.9 mg/dL (0.7-1.3); GLOMERULAR FILTRATION RATE 21; GLUCOSE 113 mg/dL (70-100); POTASSIUM 3.9 mEq/L (3.5-5.2); SODIUM 146 mEq/L (134-144)
[2016-10-31] MEDS: oxyCODONE IR 5 MG TAB PO PRN (07:28)
[2016-10-31] MEDS: DONEPEZIL HCL 5 MG TAB PO SCH (07:30)
[2016-10-31] MEDS: PRESERVISION AREDS2 FORMULA EYE VIT 1 EACH PO SCH (09:00)
[2016-10-31] MEDS: ERTAPENEM 0.5 GM in NS 100 ML IV SCH (10:03)
[2016-10-31] MEDS: METOPROLOL TARTRATE 25 MG TAB PO SCH ×2 (12:53→20:43)
[2016-10-31] MEDS: predniSONE 20 MG TAB PO SCH (12:57)
[2016-10-31] MEDS: CLOPIDOGREL BISULFATE 75 MG TAB PO SCH ×2 (13:09→15:27)
--- NOTE | 2016-10-31 13:22 | SOAPPROG ---
SOAP Progress Note Assessment/Plan: Assessment: 1. History prostate cancer 2. Dementia 3. pelvic mass, renal failure, improving post nephrostomies, cr 2.9 Plan:follow renal function, await result of biopsy, could try full dose ADT if prostate ca but he is fairly debilitated, discussed with and son 10/30/16 14:35 10/31/16 13:21 Subjective: Sleepy, arousable Objective: Vital Signs Temp Pulse Resp BP Pulse Ox 97.2 F 109 H 12 136/74 H 88 L 10/31/16 07:44 10/31/16 12:53 10/31/16 07:44 10/31/16 07:44 10/31/16 10:09 Microbiology 10/28/16 18:15 Gram Stain - Final Other - Other 10/28/16 18:15 Gram Stain - Final Other - Syringe Laboratory Results 10/31/16 05:00 10/31/16 05:00 10/30/16 10/31/16 11/01/16 05:59 05:59 05:59 Intake Total 800 700 370 Output Total 1825 1505 250 Balance -1025 -805 120 PT 15.9 SEC (12.0-15.0) H 10/28/16 06:09 INR 1.27 (0.83-1.16) H 10/28/16 06:09 ICD10 Worksheet Patient Problems: Problems Problem Status Onset Hematuria Acute Pelvic mass in male Acute Renal failure Acute Atrial fibrillation Acute Bronchitis Acute Congestive heart failure Acute DVT (deep venous thrombosis) Acute Generalized weakness Acute UTI (urinary tract infection) Acute Urinary tract infection Acute Weakness Acute
--- NOTE | 2016-10-31 14:24 | HOSPPROG ---
Hospitalist Progress Note Assessment/Plan: * Bladder/pelvic mass -biopsy pending * Bilateral hydro due to mass- complete obstruction -s/p nephrostomy tubes * Acute on CKD - baseline creatinine 2.0 -improving * Hyperkalemia -s/p Kayexalate - resolved * Pneumobilia - likely chronic * UTI -IV Invanz * CAD s/p stent LM/LAD May 19 -no active bleeding - resume Plavix * Afib/PCM -holding Savaysa due to acute bleed -resume digoxin -continue metoprolol * Dementia -Aricept * Metastatic prostate cancer - Casodex * Vision change - s/p intra-ocular steroid followed by PO -per neuro/optho - wean steroids to off * Metabolic encephalopathy COR STATUS - patient has longstanding wish for shock x 1 then full DNR if not immediately resuscitated Subjective: fell last night OOB. Gets very sedated after percoset Objective: Vital Signs Temp Pulse Resp BP Pulse Ox 36.3 C 87 20 125/78 H 95 10/31/16 12:55 10/31/16 12:55 10/31/16 12:55 10/31/16 12:55 10/31/16 12:55 Microbiology 10/28/16 18:15 Gram Stain - Final Other - Other 10/28/16 18:15 Gram Stain - Final Other - Syringe Laboratory Results 10/31/16 05:00 10/31/16 05:00 10/30/16 10/31/16 11/01/16 05:59 05:59 05:59 Intake Total 800 700 370 Output Total 1825 1505 250 Balance -1025 -805 120 PT 15.9 SEC (12.0-15.0) H 10/28/16 06:09 INR 1.27 (0.83-1.16) H 10/28/16 06:09 - Physical Exam Constitutional: no apparent distress, appears nourished, not in pain Ears, Nose, Mouth, Throat: hard of hearing Cardiovascular: regular rate and rhythym, no murmur, rub, or gallop Respiratory: no respiratory distress, no rales or rhonchi, clear to auscultation Gastrointestinal: normoactive bowel sounds, soft, non-tender abdomen, no palpable masses Skin: no rashes or abrasions, no fluctuance, no induration Neurologic: No AAOx3 Psychiatric: encephalopathic, flat affect, poor insight, poor judgement, poor memory, No interacting appropriately, No agitated ICD10 Worksheet Patient Problems: Problems Problem Status Onset Hematuria Acute Pelvic mass in male Acute Renal failure Acute Atrial fibrillation Acute Bronchitis Acute Congestive heart failure Acute DVT (deep venous thrombosis) Acute Generalized weakness Acute UTI (urinary tract infection) Acute Urinary tract infection Acute Weakness Acute
[2016-10-31] MEDS: NS 1,000 ML IV SCH (15:05)
[2016-10-31] MEDS: DIGOXIN 125 MCG TAB PO SCH (15:18)
[2016-10-31] MEDS: SENNOSIDES/DOCUSATE SODIUM TAB PO SCH ×2 (16:52→20:44)
[2016-10-31] MEDS: BICALUTAMIDE 50 MG TAB PO SCH (19:13)
[2016-10-31] MEDS: EZETIMIBE 10 MG TAB PO SCH (19:13)
[2016-10-31] MEDS: ATORVASTATIN CALCIUM 40 MG TAB PO SCH (19:13)
[2016-11-01] MEDS: Meth/Meblue/Sod Phos/Psal/Hyos [Uribel Capsule] 1 EACH PO SCH ×4 (05:48→22:00)
--- NOTE | 2016-11-01 08:39 | SOAPPROG ---
BHARAT Progress Note Assessment/Plan: Assessment: 1) Metastatic prostate cancer (patient on Casodex) 2) Recurrent mass (prostate cancer versus new bladder primary) 3) Acute renal failure from ureteral obstruction secondary to #2 4) Dementia Plan: Patient underwent biopsy of pelvic mass on Tuesday. Pathology is currently pending. If this confirms prostate cancer, then initiation of Degarelix would be a possibility. I would favor this over Lupron, given it's more rapid onset of action. If the biopsy instead reveals bladder cancer, then options would be limited. Per discussion with Dr. Mckay, patient not a good candidate for chemotherapy. Will plan on meeting with patient and family once biopsy results know. PCN's have been placed to relieve the obstructive uropathy. His creatinine is improving. 11/01/16 08:34 Subjective: Asleep. Awakens to voice. Minimally interactive. Patient's is not in the room. Objective: Vital Signs Temp Pulse Resp BP Pulse Ox 36.8 C 70 18 106/77 90 L 11/01/16 03:30 11/01/16 03:30 11/01/16 03:30 11/01/16 03:30 11/01/16 03:30 Microbiology 10/28/16 18:15 Gram Stain - Final Other - Other 10/28/16 18:15 Gram Stain - Final Other - Syringe Laboratory Results 10/31/16 05:00 10/31/16 05:00 10/31/16 11/01/16 11/02/16 05:59 05:59 05:59 Intake Total 700 1900 Output Total 1505 735 Balance -805 1165 PT 15.9 SEC (12.0-15.0) H 10/28/16 06:09 INR 1.27 (0.83-1.16) H 10/28/16 06:09 - Time Spent With Patient Time Spent With Patient: 15 minutes Physical Exam - Physical Exam General Appearance: alert, no apparent distress (Minimal interaction. Does not answer questions) ICD10 Worksheet Patient Problems: Problems Problem Status Onset Hematuria Acute Pelvic mass in male Acute Renal failure Acute Atrial fibrillation Acute Bronchitis Acute Congestive heart failure Acute DVT (deep venous thrombosis) Acute Generalized weakness Acute UTI (urinary tract infection) Acute Urinary tract infection Acute Weakness Acute
[2016-11-01] MEDS ORDERED: DIGOXIN 250 MCG TAB PO SCH (09:01)
[2016-11-01] MEDS: ERTAPENEM 0.5 GM in NS 100 ML IV SCH (10:13)
[2016-11-01] MEDS: NS 1,000 ML IV SCH (10:14)
[2016-11-01] MEDS: METOPROLOL TARTRATE 25 MG TAB PO SCH ×2 (12:09→22:00)
[2016-11-01] MEDS: predniSONE 20 MG TAB PO SCH (12:09)
[2016-11-01] MEDS: DONEPEZIL HCL 5 MG TAB PO SCH (12:09)
[2016-11-01] MEDS: SENNOSIDES/DOCUSATE SODIUM TAB PO SCH ×2 (12:13→21:59)
[2016-11-01] MEDS: PRESERVISION AREDS2 FORMULA EYE VIT 1 EACH PO SCH (12:13)
--- NOTE | 2016-11-01 15:06 | HOSPPROG ---
Hospitalist Progress Note Assessment/Plan: * Bladder/pelvic mass -biopsy pending - likely recurrent prostate vs. bladder * Bilateral hydro due to mass- complete obstruction -s/p nephrostomy tubes * Acute on CKD - baseline creatinine 2.0 -improving * Hyperkalemia -s/p Kayexalate - resolved * Pneumobilia - likely chronic * UTI -IV Invanz - stop after tomorrows dose * CAD s/p stent LM/LAD May 19 -no active bleeding - resume Plavix * Afib/PCM -holding Savaysa due to acute bleed -resume digoxin -continue metoprolol * Dementia -Aricept * Metastatic prostate cancer - Casodex * Vision change - s/p intra-ocular steroid followed by PO -per neuro/optho - wean steroids to off * Metabolic encephalopathy COR STATUS - patient has longstanding wish for shock x 1 then full DNR if not immediately resuscitated Subjective: Mental status worsening, unresponsive for good parts of the day Objective: Vital Signs Temp Pulse Resp BP Pulse Ox 36.9 C 93 18 119/85 H 100 11/01/16 11:51 11/01/16 11:51 11/01/16 11:51 11/01/16 11:51 11/01/16 11:51 Microbiology 10/28/16 18:15 Gram Stain - Final Other - Other 10/28/16 18:15 Gram Stain - Final Other - Syringe Laboratory Results 10/31/16 05:00 10/31/16 05:00 10/31/16 11/01/16 11/02/16 05:59 05:59 05:59 Intake Total 700 1900 Output Total 1505 735 180 Balance -805 1165 -180 PT 15.9 SEC (12.0-15.0) H 10/28/16 06:09 INR 1.27 (0.83-1.16) H 10/28/16 06:[address] - negative case d/w palliative care [employer] Andra Velarde - family will not make any decisions regarding care until biopsy available - Physical Exam Constitutional: no apparent distress, appears nourished, not in pain Cardiovascular: regular rate and rhythym, no murmur, rub, or gallop Respiratory: no respiratory distress, no rales or rhonchi, clear to auscultation Gastrointestinal: normoactive bowel sounds, soft, non-tender abdomen, no palpable masses Skin: no rashes or abrasions, no fluctuance, no induration Neurologic: weakness, No AAOx3 Psychiatric: encephalopathic, flat affect, poor insight, poor judgement, poor memory, No interacting appropriately, No anxious, No agitated ICD10 Worksheet Patient Problems: Problems Problem Status Onset Hematuria Acute Pelvic mass in male Acute Renal failure Acute Atrial fibrillation Acute Bronchitis Acute Congestive heart failure Acute DVT (deep venous thrombosis) Acute Generalized weakness Acute UTI (urinary tract infection) Acute Urinary tract infection Acute Weakness Acute
[2016-11-01] MEDS: D5W 1/2 NS 1,000 ML IV SCH (15:38)
[2016-11-01] MEDS: EZETIMIBE 10 MG TAB PO SCH (17:59)
[2016-11-01] MEDS: CLOPIDOGREL BISULFATE 75 MG TAB PO SCH (17:59)
[2016-11-01] MEDS: BICALUTAMIDE 50 MG TAB PO SCH (17:59)
[2016-11-01] MEDS: ATORVASTATIN CALCIUM 40 MG TAB PO SCH (18:00)
[2016-11-02 05:46] LABS: % IMMATURE GRANULYOCYTES 1.1 % (0.0-1.1); ABSOLUTE IMMATURE GRANULOCYTES 0.17 10^3/uL (0.00-0.10); ADD DIFF? NO; ADD MORPH? NO; ADD SCAN? NO; ATYPICAL LYMPHOCYTE FLAG 0 (0-99); FRAGMENT RBC FLAG 0 (0-99); HEMATOCRIT 25.7 % (40.0-51.0); HEMOGLOBIN 8.3 g/dL (13.7-17.5); LEFT SHIFT FLG 30 (0-99); LIPEMIA HEMOLYSIS FLAG 80 (0-99); MEAN CELL HEMOGLOBIN 31.9 pg (27.9-34.1); MEAN CELL HEMOGLOBIN CONCENTR. 32.3 g/dL (32.4-36.7); MEAN CELL VOLUME 98.8 fL (81.5-99.8); MEAN PLATELET VOLUME 11.4 fL (8.7-11.7); PLATELET CLUMPS FLAG 10 (0-99); PLATELET COUNT 131 10^3/uL (150-400); RED CELL DISTRIBUTION WIDTH 15.4 % (11.5-15.2)
[2016-11-02 06:05] LABS: ANION GAP 8 mEq/L (8-16); CALCIUM 7.1 mg/dL (8.5-10.4); CARBON DIOXIDE 21 mEq/l (22-31); CHLORIDE 109 mEq/L (97-110); CREATININE 3.9 mg/dL (0.7-1.3); GLOMERULAR FILTRATION RATE 15; GLUCOSE 385 mg/dL (70-100); POTASSIUM 3.7 mEq/L (3.5-5.2); SODIUM 138 mEq/L (134-144)
[2016-11-02] MEDS: Meth/Meblue/Sod Phos/Psal/Hyos [Uribel Capsule] 1 EACH PO SCH ×2 (06:10→13:41)
[2016-11-02] MEDS: oxyCODONE IR 5 MG TAB PO PRN (09:47)
[2016-11-02] MEDS: DONEPEZIL HCL 5 MG TAB PO SCH (09:52)
[2016-11-02] MEDS: METOPROLOL TARTRATE 25 MG TAB PO SCH ×2 (09:52→21:23)
[2016-11-02] MEDS: SENNOSIDES/DOCUSATE SODIUM TAB PO SCH ×2 (09:52→21:25)
[2016-11-02] MEDS: predniSONE 20 MG TAB PO SCH (09:52)
[2016-11-02] MEDS: ERTAPENEM 0.5 GM in NS 100 ML IV SCH (09:56)
[2016-11-02] MEDS: D5W 1/2 NS 1,000 ML IV SCH ×2 (10:14→21:33)
[2016-11-02] MEDS: PRESERVISION AREDS2 FORMULA EYE VIT 1 EACH PO SCH (10:15)
[2016-11-02] MEDS: DIGOXIN 125 MCG TAB PO SCH (10:25)
--- NOTE | 2016-11-02 15:35 | HOSPPROG ---
Hospitalist Progress Note Assessment/Plan: * Bladder/pelvic mass -biopsy pending - likely recurrent prostate vs. bladder -not surgical candidate -poor chemo candidate * Bilateral hydro due to mass- complete obstruction -s/p nephrostomy tubes -back to IR today to reposition misplaced tube * Acute on CKD - baseline creatinine 2.0 -suspect creatinine increase today due to malpositioned tube * Hyperkalemia -s/p Kayexalate - resolved * Pneumobilia - likely chronic * UTI -IV Invanz x 5 days - culture negative - will DC * CAD s/p stent LM/LAD May 19 -tried to resume Plavix - H/H dropped -oozing from tumor into bladder - need to continue hold Plavix * Afib/PCM -holding Savaysa due to acute bleed -resume digoxin - check level in am with poor renal function -continue metoprolol * Dementia -Aricept * Metastatic prostate cancer - Casodex * Vision change - s/p intra-ocular steroid followed by PO -per neuro/optho - wean steroids to off * Metabolic encephalopathy COR STATUS - patient has longstanding wish for shock x 1 then full DNR if not immediately resuscitated Prognosis is poor - family does not with to make any decisions until biopsy result available Subjective: A little more awake today Objective: Vital Signs Temp Pulse Resp BP Pulse Ox 36.4 C 82 16 126/67 H 96 11/02/16 12:00 11/02/16 12:00 11/02/16 12:00 11/02/16 12:00 11/02/16 12:00 Microbiology 10/28/16 18:15 Gram Stain - Final Other - Other 10/28/16 18:15 Gram Stain - Final Other - Syringe Laboratory Results 11/02/16 05:40 11/02/16 05:40 11/01/16 11/02/16 11/03/16 05:59 05:59 05:59 Intake Total 1900 2320 200 Output Total 735 670 150 Balance 1165 1650 50 PT 15.9 SEC (12.0-15.0) H 10/28/16 06:09 INR 1.27 (0.83-1.16) H 10/28/16 06:09 d/w Dr. Rai - no biopsy results available yet abd us - nephrostomy tube no longer in correct location - Physical Exam Constitutional: no apparent distress, appears nourished, not in pain Cardiovascular: regular rate and rhythym, no murmur, rub, or gallop Respiratory: no respiratory distress, no rales or rhonchi, clear to auscultation Gastrointestinal: normoactive bowel sounds, other (palpable pelvic mass with tenderness), No no palpable masses, No ascites, No guarding, No rebound Skin: no rashes or abrasions, no fluctuance, no induration Neurologic: No AAOx3 Psychiatric: encephalopathic, flat affect, poor insight, poor judgement, poor memory, No agitated ICD10 Worksheet Patient Problems: Problems Problem Status Onset Hematuria Acute Pelvic mass in male Acute Renal failure Acute Atrial fibrillation Acute Bronchitis Acute Congestive heart failure Acute DVT (deep venous thrombosis) Acute Generalized weakness Acute UTI (urinary tract infection) Acute Urinary tract infection Acute Weakness Acute
[2016-11-02 18:34] LABS: HEMATOCRIT 27.4 % (40.0-51.0); HEMOGLOBIN 8.6 g/dL (13.7-17.5)
[2016-11-02] MEDS: BICALUTAMIDE 50 MG TAB PO SCH (21:23)
[2016-11-02] MEDS: ATORVASTATIN CALCIUM 40 MG TAB PO SCH (21:24)
[2016-11-02] MEDS: EZETIMIBE 10 MG TAB PO SCH (21:24)
[2016-11-03] MEDS: oxyCODONE IR 5 MG TAB PO PRN (00:35)
[2016-11-03 05:38] VITALS: TEMP 97.5
[2016-11-03 06:13] LABS: ABSOLUTE IMMATURE GRANULOCYTES 0.13 10^3/uL (0.00-0.10); ADD DIFF? NO; ADD MORPH? NO; ADD SCAN? NO; ATYPICAL LYMPHOCYTE FLAG 0 (0-99); FRAGMENT RBC FLAG 0 (0-99); HEMATOCRIT 24.9 % (40.0-51.0); LEFT SHIFT FLG 40 (0-99); LIPEMIA HEMOLYSIS FLAG 80 (0-99); MEAN CELL HEMOGLOBIN 31.9 pg (27.9-34.1); MEAN CELL HEMOGLOBIN CONCENTR. 32.1 g/dL (32.4-36.7); MEAN CELL VOLUME 99.2 fL (81.5-99.8); MEAN PLATELET VOLUME 11.8 fL (8.7-11.7); PLATELET CLUMPS FLAG 0 (0-99); PLATELET COUNT 115 10^3/uL (150-400); RED BLOOD CELL COUNT 2.51 10^6/uL (4.40-6.38); RED CELL DISTRIBUTION WIDTH 15.5 % (11.5-15.2)
[2016-11-03 06:39] LABS: ANION GAP 9 mEq/L (8-16); CALCIUM 6.9 mg/dL (8.5-10.4); CARBON DIOXIDE 20 mEq/l (22-31); CHLORIDE 107 mEq/L (97-110); CREATININE 4.5 mg/dL (0.7-1.3); DIGOXIN 1.4 ng/mL (0.8-2.0); GLOMERULAR FILTRATION RATE 13; GLUCOSE 464 mg/dL (70-100); POTASSIUM 3.7 mEq/L (3.5-5.2); SODIUM 136 mEq/L (134-144)
[2016-11-03] MEDS: D5W 1/2 NS 1,000 ML IV SCH (07:11)
[2016-11-03] MEDS ORDERED: D50W 25 GM/50 ML SYR IVP PRN (08:02)
[2016-11-03] MEDS ORDERED: NS 1,000 ML IV SCH (08:15)
[2016-11-03] MEDS ORDERED: INSULIN LISPRO 100 UNIT/ML SC SCH (08:30)
[2016-11-03] MEDS ORDERED: IOPAMIDOL (ISOVUE-300) 100 ML BTL IV ONE (10:48)
[2016-11-03] MEDS ORDERED: LIDOCAINE 2% 5 ML SDV ONE (10:49)
[2016-11-03] MEDS ORDERED: PROPOFOL/EMULSION 500 MG/50 ML BOTTLE IV ONE (10:49)
--- NOTE | 2016-11-03 12:11 | POSTOPPROG ---
Post Op Note Date of Operation: 11/03/16 Surgeon: Max Askew Button Breaker Operator: Pastor Denson Anesthesia: IV Sedation Pre-op Diagnosis: Pelvic CA Post-op Diagnosis: Same Indication: Bilateral ureteral obstruction, malposition of nephrostomy tubes Procedure: New 10F right nephrostomy. Exchange of left nephrostomy tube 10F Findings: Right tube out of kidney; left on its way out. Inf/Abcess present in the surg proc area at time of surgery?: Yes Depth: Organ Space EBL: Minimal Complications: 0 Drains: Nephrostomy (Bilateral 10F pigtails) Specimen(s): None collected at this time.
[2016-11-03] MEDS: DONEPEZIL HCL 5 MG TAB PO SCH (15:02)
[2016-11-03] MEDS: METOPROLOL TARTRATE 25 MG TAB PO SCH ×2 (15:02→22:22)
[2016-11-03] MEDS: SENNOSIDES/DOCUSATE SODIUM TAB PO SCH ×2 (15:02→22:22)
[2016-11-03] MEDS: predniSONE 20 MG TAB PO SCH (15:02)
[2016-11-03] MEDS: PRESERVISION AREDS2 FORMULA EYE VIT 1 EACH PO SCH (15:02)
[2016-11-03] MEDS: DIGOXIN 125 MCG TAB PO SCH (15:02)
--- NOTE | 2016-11-03 16:49 | SOAPPROG ---
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 Yuen (pathology). 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 This could have arose from bladder, prostate, or colon. Exact site of origin impossible to determine at this point. This represents a very aggressive malignancy. At this point it would not be curable, and would require multiagent chemotherapy for palliative treatment. The patient is unable to make medical decisions due to dementia. I met with his and son Tip today. His other son Rod was present by phone. All of the above was discussed with them. They do not want to pursue aggressive therapy, and decline chemotherapy treatment. At this point they favor comfort care. I think this is quite reasonable given patient's age, comorbidities, and the aggressive nature of this malignancy. He likely has a survival of 1 - 2 months without further treatment. They are understanding and accepting of this. We discussed option of hospice care. They would like to proceed with hospice. I will order a hospice consult with [facility]. Patient may require eventual inpatient hospice, but initially family would like to take him home with hospice. Per our meeting today, no further Oncology treatment planned. I will update Dr. Mckay on family decision. Subjective: Pathology has been resulted. Patient remains minimally responsive. Family ( and son) at bedside. Objective: Vital Signs Temp Pulse Resp BP Pulse Ox 36.4 C 81 16 109/58 L 93 11/03/16 12:33 11/03/16 16:03 11/03/16 13:00 11/03/16 16:03 11/03/16 13:22 Microbiology 10/28/16 18:15 Gram Stain - Final Other - Other 10/28/16 18:15 Gram Stain - Final Other - Syringe Laboratory Results 11/03/16 05:45 11/03/16 05:45 11/02/16 11/03/16 11/04/16 05:59 05:59 05:59 Intake Total 2320 1100 1278 Output Total 670 660 100 Balance 5833 052 6981 PT 15.9 SEC (12.0-15.0) H 10/28/16 06:09 INR 1.27 (0.83-1.16) H 10/28/16 06:09 - Time Spent With Patient Time Spent With Patient: 45 minutes Physical Exam - Physical Exam General Appearance: other (Asllep. Awakens to voice. Does not answer questions or follow commands. Appears comfortable) Abdomen: other (Palpable pelvic mass with tenderness to palpation. Minimal abdominal distension.) ICD10 Worksheet Patient Problems: Problems Problem Status Onset Hematuria Acute Pelvic mass in male Acute Renal failure Acute Atrial fibrillation Acute Bronchitis Acute Congestive heart failure Acute DVT (deep venous thrombosis) Acute Generalized weakness Acute UTI (urinary tract infection) Acute Urinary tract infection Acute Weakness Acute
--- NOTE | 2016-11-03 18:14 | HOSPPROG ---
Hospitalist Progress Note Assessment/Plan: Assessment: 86-year-old male presenting with acute on chronic encephalopathy in the setting acute kidney injury on chronic kidney disease secondary to obstructive uropathy and newly diagnosed small cell cancer mass Plan: 1. Encephalopathy. Acute on chronic, evidenced by global brain dysfunction characterized as somnolence, confusion, disorientation, acute change from patient's baseline which is normally alert awake oriented x3 and responsive with coherent answers, most likely secondary to the metabolic effects of acute kidney injury as well as the toxic effects of infection -patient's mentation remains below his baseline and is anticipated to worsen in the setting of malignancy -patient currently has limited participation in therapy modalities secondary to his poor mentation - counseled extensively during our encounter that patient's prognosis for returning his cognitive capacity is guarded 2. Acute kidney injury on chronic kidney disease stage 3. Secondary to obstructive uropathy with bilateral hydronephrosis secondary to a compressing mass -nephrostomy tubes replaced today, currently draining fluid -creatinine rising today, concerning for development of complete renal failure -continue nephrostomy tubes overnight, will discuss potential removal with family tomorrow given his hospice goals of care 3. Small cell cancer. Newly diagnosed mass has been confirmed to be small cell cancer on pathology -discussed with Dr. Rai, we both agree that hospice is the appropriate goal of care -family would like to decide between home versus inpatient hospice, consultation placed for tomorrow 4. Atrial fibrillation. Permanent, review of interrogation strip demonstrates continuous AFib but no evidence of 3 second pause which was reported by the PACU -patient's pacemaker appears to be functioning properly upon interrogation -no indication for cardiology consultation -no indication for device upgrade or change -continue digoxin 5. Urinary tract infection. Complicated in male, status post antibiotics, discontinued Diet. As tolerated Prophylaxis. High risk patient, from contraindicated given ongoing bleeding, SCDs Code. Limited resuscitation Disposition. Anticipated discharge is 5/ to either home or inpatient hospice. Subjective: Counseled patient's regarding the overall components of his care, awaiting to receive biopsy results initially during our encounter, discussed the current limitations of his mental status Objective: Vital Signs Temp Pulse Resp BP Pulse Ox 36.4 C 77 16 112/6 L 100 11/03/16 12:33 11/03/16 17:06 11/03/16 13:00 11/03/16 17:06 11/03/16 17:06 Microbiology 10/28/16 18:15 Gram Stain - Final Other - Other 10/28/16 18:15 Gram Stain - Final Other - Syringe Laboratory Results 11/03/16 05:45 11/03/16 05:45 11/02/16 11/03/16 11/04/16 05:59 05:59 05:59 Intake Total 2320 1100 1278 Output Total 670 660 100 Balance 3395 406 5867 PT 15.9 SEC (12.0-15.0) H 10/28/16 06:09 INR 1.27 (0.83-1.16) H 10/28/16 06:09 - Time Spent With Patient Time Spent with Patient: greater than 35 minutes Time Spent with Patient: Greater than 35 minutes spent on this patients care, greater than 50% of time spent counseling, educating, and coordinating care regarding the above mentioned plan. - Physical Exam Constitutional: not in pain, chronically ill appearing Cardiovascular: systolic murmur (2/6 systolic), irregularly irregular, edema ( Trace bilateral lower extremities), No tachycardia Respiratory: reduced air movement (Poor inspiratory effort), No expiratory wheeze, No bronchial breath sounds Gastrointestinal: normoactive bowel sounds, soft, non-tender abdomen, no palpable masses Skin: other (No erythema around the percutaneous nephrostomy tube site) Neurologic: other (Alert awake oriented x1 to person only) Psychiatric: not anxious, encephalopathic, No agitated ICD10 Worksheet Patient Problems: Problems Problem Status Onset Bronchitis Acute Atrial fibrillation Acute DVT (deep venous thrombosis) Acute Urinary tract infection Acute Congestive heart failure Acute Weakness Acute Generalized weakness Acute UTI (urinary tract infection) Acute Pelvic mass in male Acute Renal failure Acute Hematuria Acute
[2016-11-03] MEDS: BICALUTAMIDE 50 MG TAB PO SCH (18:16)
[2016-11-03] MEDS: EZETIMIBE 10 MG TAB PO SCH (18:16)
[2016-11-03] MEDS: ATORVASTATIN CALCIUM 40 MG TAB PO SCH (18:16)
[2016-11-03] MEDS: HYDROmorphONE/DILAUDID 1 MG/ML SYR IVP PRN (20:05)
[2016-11-04 05:58] VITALS: BP 115/68; PULSE 80; RESP 20; O2SAT 99
[2016-11-04 05:59] LABS: HEMATOCRIT 23.2 % (40.0-51.0); HEMOGLOBIN 7.4 g/dL (13.7-17.5); MEAN CELL HEMOGLOBIN CONCENTR. 31.9 g/dL (32.4-36.7); MEAN CELL VOLUME 100.4 fL (81.5-99.8); RED BLOOD CELL COUNT 2.31 10^6/uL (4.40-6.38); RED CELL DISTRIBUTION WIDTH 15.4 % (11.5-15.2)
[2016-11-04 06:20] LABS: ANION GAP 10 mEq/L (8-16); CALCIUM 7.2 mg/dL (8.5-10.4); CARBON DIOXIDE 19 mEq/l (22-31); CHLORIDE 118 mEq/L (97-110); CREATININE 3.7 mg/dL (0.7-1.3); GLOMERULAR FILTRATION RATE 16; GLUCOSE 76 mg/dL (70-100); POTASSIUM 3.8 mEq/L (3.5-5.2); SODIUM 147 mEq/L (134-144)
[2016-11-04] MEDS: HYDROmorphONE/DILAUDID 1 MG/ML SYR IVP PRN (10:27)
[2016-11-04] MEDS: PRESERVISION AREDS2 FORMULA EYE VIT 1 EACH PO SCH (11:16)
[2016-11-04] MEDS: DIGOXIN 125 MCG TAB PO SCH (11:17)
[2016-11-04] MEDS: DONEPEZIL HCL 5 MG TAB PO SCH (11:18)
[2016-11-04] MEDS: predniSONE 20 MG TAB PO SCH (11:18)
[2016-11-04] MEDS: SENNOSIDES/DOCUSATE SODIUM TAB PO SCH (11:18)
[2016-11-04] MEDS: METOPROLOL TARTRATE 25 MG TAB PO SCH (11:18)
--- NOTE | 2016-11-04 11:50 | PDDCSUM ---
Discharge Summary Discharge Summary: DISCHARGE SUMMARY FOLLOW-UP ITEMS: None DATE OF ADMISSION: 10/28/16 DATE OF DISCHARGE: 11/04/2016 DISCHARGE DIAGNOSES: 1. Acute on chronic encephalopathy 2. Acute kidney injury on chronic kidney disease stage 3 3. New diagnosis of small-cell carcinoma 4. Permanent atrial fibrillation 5. Complicated urinary tract infection 6. Obstructive uropathy and acute bilateral hydronephrosis 7. Acute hypernatremia CONSULTATIONS: Oncology, hospice, Interventional Radiology PROCEDURES / IMAGING: Bilateral percutaneous nephrostomy tube placement with mass biopsy CHIEF COMPLAINT: Acute confusion, encephalopathy SUBJECTIVE: Patient is minimally responsive, verbalizing incoherent speech PHYSICAL EXAM ON DISCHARGE: Systolic blood pressure is 110, heart rate 70, satting well on 2 L nasal cannula , appears comfortable, elderly and chronically ill-appearing LABS ON DISCHARGE: Creatinine 3.7, BUN 90, potassium 3.8, serum sodium 147, white blood cell count 9600, hemoglobin 7.4 HOSPITAL COURSE BY PROBLEM: 1. Acute on chronic encephalopathy. Evidenced by global brain dysfunction characterized as somnolence, confusion, disorientation, acute change from his baseline which is normally alert awake oriented x3 and responsive with coherent answers, most likely cause of this change are metabolic effects of acute kidney injury as well as toxic effects of infection. The patient's mental status progressively worsened and his only marginally responsive at time of transfer to inpatient hospice. We have counseled the family that there is a very poor prognosis for returning to his previous cognitive capacity and we would most likely anticipated that the patient's mental status will continue to decline as he becomes more uremic. 2. Acute kidney injury on chronic kidney disease stage 3. This is secondary to obstructive uropathy from a compressing mass and nephrostomy tubes were placed which did demonstrate fluid drainage and marginal improvement in his renal function. That being said, given that the patient's aggressively expanding mass is terminal, the decision was made after hospice consultation to remove the nephrostomy tubes and treat the patient palliatively for pain management of any worsening hydronephrosis. This strategy of treatment is very appropriate at this time. 3. Obstructive uropathy with bilateral hydronephrosis. As noted above, secondary to a compressing mass causing proximal dilatation and the pain full flanks on presentation. Patient's pain was improved with nephrostomy tube placement but at this time the patient's pain is well managed with IV narcotics and these tubes will be removed prior to transition to inpatient hospice. 4. Small cell carcinoma. Newly diagnosed mass is aggressively expanding and is now palpable on exam. The patient was seen in consultation by Dr. Rai from Oncology, and the poor prognosis small cell carcinoma was delivered to the patient's family on 11/03. They elected for hospice consultation on 11/04 and transition to inpatient hospice facility thereafter. 5. Permanent atrial fibrillation. During the patient's hospitalization there was concern that he may have experienced a several 2nd pause but this was not confirmed on review of interrogation strip provided by [employer]. Given the patient's hospice status there is no indication for further cardiology consultation. We have elected to continue his digoxin and metoprolol on discharge so as the patient does not immediately go into congestive heart failure from AFib RVR. 6. Complicated urinary tract infection. The setting of urinary tract obstruction in a male, patient received IV antibiotics and has completed a full course. 7. Acute hypernatremia. Secondary to poor free water intake secondary to worsening mental status, do not recommend ongoing use of IV fluids as this will most likely prolong his suffering. DISCHARGE MEDICATIONS: Please see official discharge medication reconciliation sheet in chart , as- needed Dilaudid and Roxanol scripts provided for hospice agency, continue digoxin and metoprolol to avoid AFib RVR, continue as needed Zofran. DISCHARGE INSTRUCTIONS: Patient will be transitioned to inpatient hospice at this time. TIME SPENT: Greater than 30 minutes were spent on direct patient care, as well as discharge planning and preparation.
--- NOTE | 2016-11-04 11:52 | PDIAF ---
- Diagnosis Diagnosis: New Diagnosis Small Cell Carcinoma, Obstructive uropathy w/ hydronephrosis Code Status: Limited Resuscitation - Medication Management Discharge Medications: Medications to Continue on Transfer Metoprolol Tartrate [Lopressor 25 mg (*)] 25 mg PO BID 08/08/15 [Last Taken 21:00] Tamsulosin HCl [Flomax 0.4 MG (*)] 0.4 mg PO DAILY@08 08/08/15 [Last Taken 10/27] Clotrimazole 1% [Lotrimin 1%] 1 aaron TP DAILY PRN 10/28/16 [Last Taken Unknown] predniSONE 20 mg PO TID 10/28/16 [Last Taken 10/27/16 21:00] Digoxin [Lanoxin 125 mcg (RX)] 125 mcg PO DAILY AT 10AM tab 11/04/16 [Last Taken Unknown] HYDROmorphone HCL [Dilaudid] 0.4 mg IVP Q2 PRN #20 dose 11/04/16 [Last Taken Unknown] Ondansetron HCl Pf [Zofran 4 mg Inj (*)] 4 mg IVP Q4HRS PRN #0 vial 11/04/16 [ Last Taken Unknown] Ondansetron Odt [Zofran Odt 4 mg (*)] 4 mg PO Q4HRS PRN #0 tab 11/04/16 [Last Taken Unknown] Polyethylene Glycol 3350 [Miralax 17 gm (*)] 17 gm PO DAILY PRN #0 pkt 11/04/16 [Last Taken Unknown] morphINE [Roxanol 10 mg/0.5 ml oral soln (*)] 10 mg PO Q2 #20 dose 11/04/16 [ Last Taken Unknown] Discharge Medications: Refer to the Discharge Home Medication list for PRN reason. PICC Care - Routine: N/A - Orders Services needed: Registered Nurse, Certified Coach Operator Oxygen: 2L NC Diet Recommendation: no restrictions on diet - Follow Up Care Current Providers and Referrals: Rod Meza MD [Primary Care Provider] - As per Instructions
[2016-11-04] MEDS ORDERED: fentaNYL 25 MCG PATCH TD ONE (16:00)
[2016-11-04] MEDS ORDERED: BEER 1 EACH EA PO ONE (18:30)
[2016-11-04] MEDS: BICALUTAMIDE 50 MG TAB PO SCH (19:05)
[2016-11-04] MEDS: ATORVASTATIN CALCIUM 40 MG TAB PO SCH (19:05)
[2016-11-04] MEDS: EZETIMIBE 10 MG TAB PO SCH (19:06)
== END 2016-11-04 20:13 | disposition hospice, home (50) | DRG 843 ==
LOC: F2W 08:48
PROVIDERS: ADMIT Internal Medicine; ATTEND Internal Medicine
PROC: 02HV33Z Insertion of Infusion Device into Superior Vena Cava, Percutaneous Approach (ICD-10-PCS; 2016-10-28)
PROC: 0WBH3ZX Excision of Retroperitoneum, Percutaneous Approach, Diagnostic (ICD-10-PCS; 2016-10-28)
PROC: 0T9030Z Drainage of Right Kidney with Drainage Device, Percutaneous Approach (ICD-10-PCS; principal; 2016-10-28 18:50)
PROC: 0T9130Z Drainage of Left Kidney with Drainage Device, Percutaneous Approach (ICD-10-PCS; principal; 2016-10-28 18:50)
PROC: 0TP5X0Z Removal of Drainage Device from Kidney, External Approach (ICD-10-PCS; 2016-11-03)
PROC: 0T25X0Z Change Drainage Device in Kidney, External Approach (ICD-10-PCS; 2016-11-03)
PROC: 0T9030Z Drainage of Right Kidney with Drainage Device, Percutaneous Approach (ICD-10-PCS; 2016-11-03)
DX: C79.89 Secondary malignant neoplasm of other specified sites (principal); N17.9 Acute kidney failure, unspecified; G93.41 Metabolic encephalopathy; N13.8 Other obstructive and reflux uropathy; N39.0 Urinary tract infection, site not specified; N18.3 Chronic kidney disease, stage 3 (moderate); N13.30 Unspecified hydronephrosis; I48.2 Chronic atrial fibrillation; E87.0 Hyperosmolality and hypernatremia; C80.1 Malignant (primary) neoplasm, unspecified; C61 Malignant neoplasm of prostate; Z16.24 Resistance to multiple antibiotics; I25.5 Ischemic cardiomyopathy; I25.10 Atherosclerotic heart disease of native coronary artery without angina pectoris; Z95.5 Presence of coronary angioplasty implant and graft; I50.9 Heart failure, unspecified; R31.9 Hematuria, unspecified; F03.90 Unspecified dementia, unspecified severity, without behavioral disturbance, psychotic disturbance, mood disturbance, and anxiety; Z98.1 Arthrodesis status; Z79.52 Long term (current) use of systemic steroids; Z79.02 Long term (current) use of antithrombotics/antiplatelets; Z79.01 Long term (current) use of anticoagulants
CPT/HCPCS: 82607-90; 82947-QW; 92526-GN; 92610-GN; 97163-GP; 97166-GO; 97530-GO; 97530-GP; 97535-GO; C1729; C1751; C1769; G8978-GP-CK; G8979-GP-CI; G8987-GO-CK; G8988-GO-CJ; G8996-GN-CK; G8997-GN-CJ; G8998-GN-CJ; J0610; J1170; J1335; J1644; J2250; J2310; J2370; J2704; J2997; J3010; Q9967